=== PATIENT | female | born 1935 | race American Indian/Alaskan Native ===

== ENCOUNTER 2017-09-15 14:12 | Inpatient (IN) | payer MEDICARE ==
[2017-09-15 15:13] LABS: Eosinophils # (Auto) 0.3 K/mm3 (0.0-0.4); Eosinophils % (Auto) 5.6 % (0.0-4.3); Hemoglobin 11.3 gm/dl (10.1-14.3); Lymphocytes % (Auto) 43.5 % (13.4-35.0); Mean Corpuscular HGB Conc 32 % (30-34); Mean Corpuscular Hemoglobin 27 pg (28-32); Mean Corpuscular Volume 86 fl (79-97); Monocytes # (Auto) 0.5 K/mm3 (0.0-0.8); Monocytes % (Auto) 9.8 % (0.0-7.3); Platelet Count 184 K/mm3 (140-440); Red Cell Distribution Width 15.7 % (13.2-15.2)
[2017-09-15 15:24] LABS: BUN/Creatinine Ratio 20; Blood Urea Nitrogen 38 mg/dL (7-17); Calcium 9.7 mg/dL (8.4-10.2); Hemolysis Index 4
[2017-09-15 15:27] LABS: INR 1.01 (0.87-1.13)
[2017-09-15 15:28] LABS: Partial Thromboplastin Time 20.1 Sec. (24.2-36.6)
--- NOTE | 2017-09-15 17:56 | Cat Scan Report ---
FINAL REPORT EXAM: CT HEAD/BRAIN WO CON HISTORY: neuro deficits < 6hrs or sx present upon awakening TECHNIQUE: CT examination of the head without IV contrast PRIORS: None. FINDINGS: Nonspecific hypodense lesion is noted in the left temporo-occipital watershed region. This raises suspicion of ischemia or ischemic infarct. Differential includes edema from underlying mass. Local mass effect with effacement of the adjacent sulci. No midline shift. No acute air-fluid level visualized in the included air-filled sinuses. Bone windows demonstrate no acute fracture. There is ventricular and sulcal prominence compatible with global cerebrocortical atrophy. The brain contains no mass, mass effect, or hemorrhage. There is no extra-axial intracranial bleed, brain bleed, or midline shift. IMPRESSION: Nonspecific hypodense lesion in left temporo occipital watershed region may be ischemia or ischemic infarct. Differential includes edema from underlying mass or infection. Recommend followup brain MRI, with IV contrast if possible, to further characterize 09/15/2017 at 5:47 p.m. EST: I discussed the findings and follow-up recommendation over the phone with RUSH Estrella.
[2017-09-15] MEDS ORDERED: NACL 0.9% 1000 ML 1,000 ML IV ONE (19:31)
--- NOTE | 2017-09-15 19:31 | Emergency Department Report ---
ED Neuro Deficit HPI - General Chief Complaint: Neuro Symptoms/Deficit Stated Complaint: POSSIBLE STROKE Time Seen by Provider: 09/15/17 18:17 Source: patient Mode of arrival: Ambulatory Limitations: No Limitations - History of Present Illness Initial Comments: 8 weeks ago, the patient had a traumatic subdural hematoma. She had routine repeat CT head imaging today for follow-up of the subdural. On the CT head scan , there was a new left-sided hypodense lesion that was not seen before. Imaging was concerning for a subacute infarction. However, mass cannot be excluded. So, the patient was sent to the ER for MRI of her brain. Patient denies any neuro deficits. According to her son, patient is acting like her normal self. - Related Data Home Medications: Home Medications Medication Instructions Recorded Confirmed Last Taken Furosemide [Lasix TAB] 40 mg PO DAILY 09/15/17 09/15/17 09/15/17 Meloxicam [Mobic] 7.5 mg PO DAILY 09/15/17 09/15/17 09/15/17 Potassium Chloride [K-Dur] 20 meq PO DAILY 09/15/17 09/15/17 09/15/17 Allergies/Adverse Reactions: Allergies Allergy/AdvReac Type Severity Reaction Status Date / Time No Known Allergies Allergy Verified 09/15/17 21:58 ED Review of Systems ROS: Stated complaint: POSSIBLE STROKE Other details as noted in HPI Comment: All other systems reviewed and negative ED Past Medical Hx - Past Medical History Previous Medical History?: Yes Hx Hypertension: Yes Hx CVA: Yes (subdural hematoma 2018) - Surgical History Past Surgical History?: No - Social History Smoking Status: Never Smoker - Medications Home Medications: Home Medications Medication Instructions Recorded Confirmed Last Taken Type Furosemide [Lasix TAB] 40 mg PO DAILY 09/15/17 09/15/17 09/15/17 History Meloxicam [Mobic] 7.5 mg PO DAILY 09/15/17 09/15/17 09/15/17 History Potassium Chloride [K-Dur] 20 meq PO DAILY 09/15/17 09/15/17 09/15/17 History ED Neuro Physical Exam - General Limitations: No Limitations General appearance: alert, in no apparent distress Suspected Stroke: No - Head Head exam: Present: atraumatic, normocephalic - Eye Eye exam: Present: normal appearance - ENT ENT exam: Present: mucous membranes moist - Neck Neck exam: Present: normal inspection - Respiratory Respiratory exam: Present: normal lung sounds bilaterally. Absent: respiratory distress - Cardiovascular Cardiovascular Exam: Present: regular rate, normal rhythm. Absent: systolic murmur, diastolic murmur, rubs, gallop - GI/Abdominal GI/Abdominal exam: Present: soft, normal bowel sounds. Absent: distended, tenderness, guarding, rebound - Extremities Exam Extremities exam: Present: normal inspection - Back Exam Back exam: Present: normal inspection - Neurological Exam Neurological exam: Present: alert, oriented X3, CN II-XII intact, normal gait (w / a walker) - NIHSS Assessment Interval: Baseline 1a. Level of Consciousness: alert 1b. LOC Questions: answers correctly 1c. LOC Commands: performs tasks correctly 2. Best Gaze: normal 3. Visual: no visual loss 4. Facial Palsy: normal symmetrical movement 5b. Motor Arm Right: no drift 5a. Motor Arm Left: no drift 6a. Motor Leg Left: no drift 6b. Motor Leg Right: no drift 7. Limb Ataxia: absent 8. Sensory: normal 9. Best Language: no aphasia 10. Dysarthria: normal 11. Extinction/Inattention: no abnormality Total Score: 0 Stroke Severity: No Stroke Symptoms - Psychiatric Psychiatric exam: Present: normal affect, normal mood - Skin Skin exam: Present: warm, dry, intact, normal color. Absent: rash ED Course Vital Signs 09/15/17 09/15/17 09/15/17 14:33 18:05 18:15 Temperature 98.2 F Pulse Rate 74 71 Respiratory 16 17 16 Rate Blood Pressure 151/53 166/65 Blood Pressure [Left] O2 Sat by Pulse 100 100 Oximetry 09/15/17 09/15/17 18:30 19:58 Temperature 98.2 F Pulse Rate 62 88 Respiratory 18 21 Rate Blood Pressure 166/65 Blood Pressure 153/70 [Left] O2 Sat by Pulse 99 Oximetry - Reevaluation(s) Reevaluation #1: MRI brain shows subacute infarct. The hospitalist has been notified. 09/15/17 22:37 - Lab Data Result diagrams: 09/15/17 14:41 09/15/17 14:41 Lab Results 09/15/17 09/15/17 09/15/17 Range/Units 14:25 14:41 14:41 WBC 4.7 (4.5-11.0) K/mm3 RBC 4.20 (3.65-5.03) M/mm3 Hgb 11.3 (10.1-14.3) gm/dl Hct 36.0 (30.3-42.9) % MCV 86 (79-97) fl MCH 27 L (28-32) pg MCHC 32 (30-34) % RDW 15.7 H (13.2-15.2) % Plt Count 184 (140-440) K/mm3 Lymph % (Auto) 43.5 H (13.4-35.0) % [place] % (Auto) 9.8 H (0.0-7.3) % Eos % (Auto) 5.6 H (0.0-4.3) % Baso % (Auto) 1.0 (0.0-1.8) % Lymph # 2.0 (1.2-5.4) K/mm3 [place] # 0.5 (0.0-0.8) K/mm3 Eos # 0.3 (0.0-0.4) K/mm3 Baso # 0.0 (0.0-0.1) K/mm3 Seg Neutrophils % 40.1 (40.0-70.0) % Seg Neutrophils # 1.9 (1.8-7.7) K/mm3 PT 13.8 (12.2-14.9) Sec. INR 1.01 (0.87-1.13) APTT 20.1 L (24.2-36.6) Sec. Thrombin Time (15.1-19.6) Sec. Sodium (137-145) mmol/L Potassium (3.6-5.0) mmol/L Chloride (98-107) mmol/L Carbon Dioxide (22-30) mmol/L Anion Gap mmol/L BUN (7-17) mg/dL Creatinine (0.7-1.2) mg/dL Estimated GFR ml/min BUN/Creatinine Ratio % Glucose (65-100) mg/dL POC Glucose 100 (70-105) Calcium (8.4-10.2) mg/dL Troponin T (0.00-0.029) ng/mL 09/15/17 09/15/17 Range/Units 14:41 14:41 WBC (4.5-11.0) K/mm3 RBC (3.65-5.03) M/mm3 Hgb (10.1-14.3) gm/dl Hct (30.3-42.9) % MCV (79-97) fl MCH (28-32) pg MCHC (30-34) % RDW (13.2-15.2) % Plt Count (140-440) K/mm3 Lymph % (Auto) (13.4-35.0) % [place] % (Auto) (0.0-7.3) % Eos % (Auto) (0.0-4.3) % Baso % (Auto) (0.0-1.8) % Lymph # (1.2-5.4) K/mm3 [place] # (0.0-0.8) K/mm3 Eos # (0.0-0.4) K/mm3 Baso # (0.0-0.1) K/mm3 Seg Neutrophils % (40.0-70.0) % Seg Neutrophils # (1.8-7.7) K/mm3 PT (12.2-14.9) Sec. INR (0.87-1.13) APTT (24.2-36.6) Sec. Thrombin Time 14.8 L (15.1-19.6) Sec. Sodium 136 L (137-145) mmol/L Potassium 5.0 (3.6-5.0) mmol/L Chloride 101.3 (98-107) mmol/L Carbon Dioxide 25 (22-30) mmol/L Anion Gap 15 mmol/L BUN 38 H (7-17) mg/dL Creatinine 1.9 H (0.7-1.2) mg/dL Estimated GFR 25 ml/min BUN/Creatinine Ratio 20 % Glucose 97 (65-100) mg/dL POC Glucose (70-105) Calcium 9.7 (8.4-10.2) mg/dL Troponin T < 0.010 (0.00-0.029) ng/mL - Radiology Data Radiology results: report reviewed - Medical Decision Making 82-year-old female with past medical history subdural hematoma, hypertension that presents to the ER with abnormal CT head findings. Vital signs are stable. Patient is well-appearing. No focal neuro deficit appreciated. Lab work shows a creatinine of 1.9 with a BUN of 38. It is concerning for prerenal azotemia. Patient was given IV fluids. No prior records of her baseline kidney function. MRI brain has been ordered. Patient will be admitted for further management. - Differential Diagnosis ICH, malignancy, CVA, electrolyte abnormality, hypoglycemia, MS Critical care attestation.: If time is entered above; I have spent that time in minutes in the direct care of this critically ill patient, excluding procedure time. ED Disposition Clinical Impression: Abnormal head CT Disposition: 09 OP ADMIT IP TO THIS HOSP Is pt being admited?: Yes Does the pt Need Aspirin: No Condition: Stable Referrals: PRIMARY CARE, [Primary Care Provider] - 3-5 Days
--- NOTE | 2017-09-15 21:28 | Magnetic Resonance Report ---
FINAL REPORT PROCEDURE: MRI brain without contrast. TECHNIQUE: Magnetic resonance imaging of the brain was performed without contrast material. HISTORY: Brain lesion on CT scan of the head. COMPARISON: CT head done earlier today. FINDINGS: The ventricles are normal in size. There are few tiny focal areas of abnormal T2 and FLAIR signal intensity within deep white matter and subcortical white matter of both cerebral hemispheres. These are not unusual for age and likely represent chronic microvascular ischemic change. There is more confluent signal abnormality within the left posterior temporal/occipital region. This is seen on T2 and FLAIR weighted sequences. It involves both cortical villarreal matter and underlying white matter. There is restricted diffusion present on the DWI sequence and the apparent diffusion coefficient map. The findings represent a subacute stroke. On the T1 weighted images there is some linear, gyral high signal intensity in this same location indicating laminar necrosis. There are no mass lesions. There is no intracranial hemorrhage. The mastoid air cells and paranasal sinuses are clear. IMPRESSION: Subacute infarct in the left posterior temporal/occipital region.
[2017-09-15] MEDS ORDERED: APRESOLINE IV PRN (21:51)
[2017-09-15] MEDS ORDERED: SODIUM CHLORIDE FLUSH SYRINGE 10 ML IV PRN (21:51)
[2017-09-15] MEDS ORDERED: DULCOLAX PR PRN (21:51)
[2017-09-15] MEDS ORDERED: ZOFRAN IV PRN (21:51)
--- NOTE | 2017-09-15 21:58 | History and Physical Report ---
History of Present Illness Date of examination: 09/16/17 History of present illness: This is a 82-year-old woman with a history of hypertension, recent subdural hematoma probably 6 weeks ago was brought to the emergency room because she had a follow-up with her neurologist or neurosurgeon, CT head was done outpatient and it showed subacute CVA. She was sent to the emergency room for evaluation. Patient does have memory problems, she is unable to give the detail history, unable to reach the son. Review of systems is unobtainable PAST MEDICAL HISTORY:hypertension, recent subdural hematoma PAST SURGICAL HISTORY: c/section, knee surgery SOCIAL HISTORY: No alcohol, no drugs, tobacco FAMILY HISTORY: Hypertension Medications and Allergies Allergies Allergy/AdvReac Type Severity Reaction Status Date / Time No Known Allergies Allergy Verified 09/15/17 21:58 Home Medications Medication Instructions Recorded Confirmed Last Taken Type Furosemide [Lasix TAB] 40 mg PO DAILY 09/15/17 09/15/17 09/15/17 History Meloxicam [Mobic] 7.5 mg PO DAILY 09/15/17 09/15/17 09/15/17 History Potassium Chloride [K-Dur] 20 meq PO DAILY 09/15/17 09/15/17 09/15/17 History Active Meds: Active Medications Acetaminophen (Tylenol) 650 mg PO Q4H PRN PRN Reason: Pain, Mild (1-3) Exam - Physical Exam Narrative exam: Gen. appearance: Patient lying in bed, no apparent distress HEENT: Normocephalic, atraumatic, pupils equally round and reactive to light, extraocular movement intact, and no sclericterus,. No JVD or thyromegaly or nodule,neck supple, no carotid bruit ,mucous membranes moist, no exudate or erythema Heart: S1, S2, regular rate and rhythm Lungs: Clear bilaterally, breathing comfortable Abdomen: Positive bowel sounds, non-tender, nondistended, no organomegaly Extremity:no edema cyanosis, clubbing Skin: no rash, dry, warm Neuro: cranial nerves difficult to assess intact, speech is fluent, motor intact - Constitutional Vitals: Temp Pulse Resp BP Pulse Ox 98.2 F 88 21 153/70 99 09/15/17 19:58 09/15/17 19:58 09/15/17 19:58 09/15/17 19:58 09/15/17 19:58 Results - Labs CBC & Chem 7: 09/15/17 22:07 09/15/17 22:07 Labs: Abnormal lab results 09/15/17 09/15/17 09/15/17 Range/Units 14:41 14:41 14:41 MCH 27 L (28-32) pg RDW 15.7 H (13.2-15.2) % Lymph % (Auto) 43.5 H (13.4-35.0) % [place] % (Auto) 9.8 H (0.0-7.3) % Eos % (Auto) 5.6 H (0.0-4.3) % APTT 20.1 L (24.2-36.6) Sec. Thrombin Time (15.1-19.6) Sec. Sodium 136 L (137-145) mmol/L BUN 38 H (7-17) mg/dL Creatinine 1.9 H (0.7-1.2) mg/dL 09/15/17 Range/Units 14:41 MCH (28-32) pg RDW (13.2-15.2) % Lymph % (Auto) (13.4-35.0) % [place] % (Auto) (0.0-7.3) % Eos % (Auto) (0.0-4.3) % APTT (24.2-36.6) Sec. Thrombin Time 14.8 L (15.1-19.6) Sec. Sodium (137-145) mmol/L BUN (7-17) mg/dL Creatinine (0.7-1.2) mg/dL - Imaging and Cardiology Chest x-ray: report reviewed CT Scan - head: report reviewed MRI - head: report reviewed Assessment and Plan Assessment Subacute CVA Hypertension Recent subdural hematoma Plan Admit medicine Obtain carotid Doppler, echo Consult neurology, occupational physical and therapy Do neurochecks, swallow screen DVT prophylaxis
[2017-09-15 22:47] LABS: Basophils % (Auto) 0.8 % (0.0-1.8); Eosinophils # (Auto) 0.3 K/mm3 (0.0-0.4); Eosinophils % (Auto) 5.4 % (0.0-4.3); Hematocrit 34.6 % (30.3-42.9); Hemoglobin 11.2 gm/dl (10.1-14.3); Lymphocytes # (Auto) 2.3 K/mm3 (1.2-5.4); Lymphocytes % (Auto) 45.6 % (13.4-35.0); Mean Corpuscular HGB Conc 32 % (30-34); Mean Corpuscular Hemoglobin 28 pg (28-32); Mean Corpuscular Volume 85 fl (79-97); Monocytes # (Auto) 0.5 K/mm3 (0.0-0.8); Monocytes % (Auto) 10.4 % (0.0-7.3); Platelet Count 175 K/mm3 (140-440); Red Blood Count 4.08 M/mm3 (3.65-5.03); Red Cell Distribution Width 15.4 % (13.2-15.2)
[2017-09-15 22:56] LABS: Calcium 9.7 mg/dL (8.4-10.2)
[2017-09-16 08:19] LABS: Chol/HDL Ratio 3.53 %
--- NOTE | 2017-09-16 12:46 | Progress Note ---
Assessment and Plan Assessment and plan: --Subacute left temporal CVA; Not a candidate for TPA Follow neuro workup, No aspirin in view of history of subdural hematoma, statin Follow neurology evaluation and recommendations Physical therapy occupational therapy rehabilitation --Acute kidney injury; secondary to vasomotor nephropathy Closely monitor renal function, avoid nephrotoxin, IV fluids as needed Nephrology consultation if no improvement --Hypertension; moderate control Continue current antihypertensives and when necessary medications --Recent subdural hematoma; supportive care, No aspirin no anticoagulants, no neurology recommendations --Full CODE STATUS --DVT prophylaxis; SCD Physical therapy occupational therapy, rehabilitation Closely monitor the patient and adjust the management as needed Plan of care is reviewed with the patient and the nurse History Interval history: Patient seen and examined medical records reviewed Admitted with subacute CVA, neuro workup is in progress Patient is alert responding appropriately Vital signs reviewed Hospitalist Physical - Constitutional Vitals: Temp Pulse Resp BP Pulse Ox 98.3 F 77 22 147/59 97 09/16/17 04:55 09/16/17 04:55 09/16/17 04:47 09/16/17 04:55 09/16/17 04:55 General appearance: Present: no acute distress, well-nourished, obese - EENT Eyes: Present: PERRL, EOM intact - Neck Neck: Present: supple, normal ROM - Respiratory Respiratory effort: normal Respiratory: bilateral: diminished, negative: rales, rhonchi - Cardiovascular Rhythm: regular Heart Sounds: Present: S1 & S2 - Extremities Extremities: no ischemia, No edema - Abdominal General gastrointestinal: soft, non-tender, non-distended, normal bowel sounds - Integumentary Integumentary: Present: clear, warm - Psychiatric Psychiatric: appropriate mood/affect, cooperative - Neurologic Neurologic: moves all extremities Results - Labs CBC & Chem 7: 09/15/17 22:07 09/15/17 22:07 Labs: Laboratory Last Values WBC 5.0 K/mm3 (4.5-11.0) 09/15/17 22:07 RBC 4.08 M/mm3 (3.65-5.03) 09/15/17 22:07 Hgb 11.2 gm/dl (10.1-14.3) 09/15/17 22:07 Hct 34.6 % (30.3-42.9) 09/15/17 22:07 MCV 85 fl (79-97) 09/15/17 22:07 MCH 28 pg (28-32) 09/15/17 22:07 MCHC 32 % (30-34) 09/15/17 22:07 RDW 15.4 % (13.2-15.2) H 09/15/17 22:07 Plt Count 175 K/mm3 (140-440) 09/15/17 22:07 Lymph % (Auto) 45.6 % (13.4-35.0) H 09/15/17 22:07 [place] % (Auto) 10.4 % (0.0-7.3) H 09/15/17 22:07 Eos % (Auto) 5.4 % (0.0-4.3) H 09/15/17 22:07 Baso % (Auto) 0.8 % (0.0-1.8) 09/15/17 22:07 Lymph # 2.3 K/mm3 (1.2-5.4) 09/15/17 22:07 [place] # 0.5 K/mm3 (0.0-0.8) 09/15/17 22:07 Eos # 0.3 K/mm3 (0.0-0.4) 09/15/17 22:07 Baso # 0.0 K/mm3 (0.0-0.1) 09/15/17 22:07 Seg Neutrophils % 37.8 % (40.0-70.0) L 09/15/17 22:07 Seg Neutrophils # 1.9 K/mm3 (1.8-7.7) 09/15/17 22:07 PT 13.8 Sec. (12.2-14.9) 09/15/17 14:41 INR 1.01 (0.87-1.13) 09/15/17 14:41 APTT 20.1 Sec. (24.2-36.6) L 09/15/17 14:41 Thrombin Time 14.8 Sec. (15.1-19.6) L 09/15/17 14:41 Sodium 139 mmol/L (137-145) 09/15/17 22:07 Potassium 4.7 mmol/L (3.6-5.0) 09/15/17 22:07 Chloride 102.4 mmol/L (98-107) 09/15/17 22:07 Carbon Dioxide 26 mmol/L (22-30) 09/15/17 22:07 Anion Gap 15 mmol/L 09/15/17 22:07 BUN 41 mg/dL (7-17) H 09/15/17 22:07 Creatinine 1.9 mg/dL (0.7-1.2) H 09/15/17 22:07 Estimated GFR 31 ml/min 09/15/17 22:07 BUN/Creatinine Ratio 22 % 09/15/17 22:07 Glucose 108 mg/dL (65-100) H 09/15/17 22:07 POC Glucose 100 (70-105) 09/15/17 14:25 Calcium 9.7 mg/dL (8.4-10.2) 09/15/17 22:07 Troponin T < 0.010 ng/mL (0.00-0.029) 09/15/17 14:41 Triglycerides 64 mg/dL (2-149) 09/16/17 07:17 Cholesterol 212 mg/dL (50-199) H 09/16/17 07:17 LDL Cholesterol Direct 165 mg/dL (50-130) H 09/16/17 07:17 HDL Cholesterol 60 mg/dL (40-59) H 09/16/17 07:17 Cholesterol/HDL Ratio 3.53 % 09/16/17 07:17
[2017-09-16] MEDS ORDERED: XANAX PO SCH (14:55)
--- NOTE | 2017-09-16 16:12 | Magnetic Resonance Report ---
FINAL REPORT EXAM: MR MRA HEAD WO CON HISTORY: stroke TECHNIQUE: Multiplanar multisequence brain arterial vascular MRA imaging 3-D image postprocessing. PRIORS: Brain MRI and head CT 09/15/2017 FINDINGS: Internal carotid arteries: Normal. Anterior cerebral arteries: Normal. Middle cerebral arteries: Normal. Vertebral arteries: Normal. Basilar artery: Normal. Posterior cerebral arteries: Normal. Developmental variation with hybrid persistent circulation of the right HEAD MACHINE FEEDER origin Occlusion: None. Vascular malformations: None. Aneurysm: None. Cortical ribbon hyperintensity in the left temporal occipital watershed region may reflect luxury perfusion in the region of suspected ischemic infarct. IMPRESSION: No definite brain vascular pathology Nonspecific cortical ribbon hyperintensity in the left temporal occipital watershed region may reflect luxury perfusion in the region of suspected ischemic infarct
[2017-09-16] MEDS: BABY ASPIRIN PO SCH (16:46)
--- NOTE | 2017-09-16 19:51 | Consultation ---
History of Present Illness Consult date: 09/16/17 Requesting physician: NAILA WAGGONER Reason for Consult: stroke Chief complaint: stroke History of present illness: This 82 year old right handed female has a history of traumatic subdural hematoma in June around according to her son for which she was admitted to [facility] but no surgery was done. She was getting yesterday a follow-up CT scan which showed a left posterior hypodensity for which she was sent to the emergency room around 9 or 10 PM. She had been confused in part due to UTI around the time of traumatic subdural from which she improved though was still not back to her baseline. She complains of some pain in the right mastoid area ever since the subdural. MRI showed left posterior embolic appearing stroke but no residuals of subdural hematoma. LDL 165, HDL 60, triglycerides 64. Past History Past Medical History: CAD (placed on hospice end of July after rehabilitation from subdural hematoma), hypertension, other (right subdural hematoma at the end of June this year from a fall). denies: diabetes, stroke Past Surgical History: , hysterectomy (total), total knee replacement ( bilaterally) Social history: (2 children, 4 grandchildren), lives with family (lives with her son). denies: smoking, alcohol abuse, prescription drug abuse, IV drug use Family history: diabetes, hypertension (mother and son), stroke (other), other ( negative for epilepsy) Medications and Allergies Allergies Allergy/AdvReac Type Severity Reaction Status Date / Time No Known Allergies Allergy Verified 09/15/17 21:58 Home Medications Medication Instructions Recorded Confirmed Last Taken Type Furosemide [Lasix TAB] 40 mg PO DAILY 09/15/17 09/15/17 09/15/17 History Meloxicam [Mobic] 7.5 mg PO DAILY 09/15/17 09/15/17 09/15/17 History Potassium Chloride [K-Dur] 20 meq PO DAILY 09/15/17 09/15/17 09/15/17 History Active Meds: Active Medications Acetaminophen (Tylenol) 650 mg PO Q4H PRN PRN Reason: Pain, Mild (1-3) Alprazolam (Xanax) 1 mg PO BOTTLE [facility] Stop: 09/17/17 06:00 Aspirin (Baby Aspirin) 81 mg PO QDAY [facility] Last Admin: 09/16/17 16:46 Dose: 81 mg Atorvastatin Calcium (Lipitor) 40 mg PO QHS [facility] Last Admin: 09/15/17 23:13 Dose: 40 mg Bisacodyl (Dulcolax) 10 mg WI QDAY PRN PRN Reason: Constipation Hydralazine HCl (Apresoline) 5 mg IV Q6H PRN PRN Reason: Keep SBP between 160-185 mm Hg Magnesium Hydroxide (Milk Of Magnesia) 30 ml PO Q4H PRN PRN Reason: Constipation Ondansetron HCl (Zofran) 4 mg IV Q4H PRN PRN Reason: Nausea And Vomiting Sodium Chloride (Sodium Chloride Flush Syringe 10 Ml) 10 ml IV PRN PRN PRN Reason: LINE FLUSH Review of Systems All systems: negative (sinus headaches until the more recent headache from the subdural, no dizziness, no snoring, no pauses noted, for 30-60 minutes and may doze off other times, not driving. Remote and short-term memory problems since the subdural hematoma) Physical Examination - Vital Signs Vital Signs: Vital Signs Temp Pulse Resp BP Pulse Ox 98.2 F 74 16 151/53 100 09/15/17 14:33 09/15/17 14:33 09/15/17 14:33 09/15/17 14:33 09/15/17 14:33 - Physical Exam Narrative exam: General Appearance: well developed but obese (per BMI) early 80s - [place] female in [facility] but confused, later accompanied by her son. HEENT: atraumatic, normocephalic; no bruits, 2+ Josey without soreness or induration or enlargement, sclerae nonicteric. Heart: no murmur or extra sounds. Extremities: no clubbing or cyanosis but 2+ edema. 2+ posterior tibial pulses bilaterally. Neurologic Exam: Mental Status: Awake, alert, oriented to September 8 but later changes back to August and gives year as 2020. She knows is that she is at [facility], gives the president after first name prompt but not PRESERVATIONIST, speech is clear, names pen and ballpoint of pen, and abstracts well. Serial 7's with at least one error but gives 5+7=12 then says 102, no right-left confusion, gets 1 of 3 objects at 3 minutes, cannot spell WORLD backwards. Cranial Nerves: right field cut, no papilledema, SVPs present, PERRLA, EOMs full without nystagmus or diplopia, facial sensation intact to pinprick and light touch, no facial weakness, Fajardo is midline, palate rises symmetrically to phonation and gags are positive, shoulder shrug is 5 X 2, tongue protrudes midline. Cerebellar: finger to nose slightly dysmetric X 2, heel to yoo is normal X 2. Sensory: intact to light touch, pinprick, and vibrations. Double simultaneous stimulation is intact. Motor Exam Upper Extremities: Mild right drift and pronation, Brandy intact. Education Site Manager are 5- X 2, tone is normal. No atrophy or fasciculations are noted visually. Motor Exam Lower Extremities: no leg lag, quadriceps and anterior tibials and gastrocnemius are 5 X 2. Brandy intact. Tone is normal. No atrophy or fasciculations are noted visually. Reflexes: Palmomental, snout and jaw jerk are negative. Triceps, biceps and brachioradialis are 2 bilaterally. Jerry's is negative bilaterally. Knee jerks and ankle jerks are 0 bilaterally even with reinforcement and without clonus. Toes are downgoing right and equivocal left to Babinski testing. - Assessment Assessment Interval: Baseline - Level of Consciousness 1a. Level of Consciousness: alert - LOC Questions 1b. LOC Questions: answers correctly - LOC Command 1c. LOC Commands: performs tasks correctly - Best Gaze 2. Best Gaze: normal - Visual 3. Visual: no visual loss - Facial Palsy 4. Facial Palsy: normal symmetrical movement - Motor Arm 5b. Motor Arm Right: no drift - Motor Leg 6a. Motor Leg Left: no drift - Limb Ataxia 7. Limb Ataxia: absent - Sensory 8. Sensory: normal - Best Language 9. Best Language: no aphasia - Dysarthria 10. Dysarthria: normal - Extinction and Inattention 11. Extinction/Inattention: no abnormality Results - Laboratory Findings CBC and BMP: 09/17/17 07:05 09/17/17 07:05 Abnormal Lab Findings: Abnormal Labs 09/15/17 09/15/17 09/15/17 14:41 14:41 14:41 MCH 27 L RDW 15.7 H Lymph % (Auto) 43.5 H [place] % (Auto) 9.8 H Eos % (Auto) 5.6 H Seg Neutrophils % APTT 20.1 L Thrombin Time Sodium 136 L BUN 38 H Creatinine 1.9 H Glucose POC Glucose Cholesterol LDL Cholesterol Direct HDL Cholesterol 09/15/17 09/15/17 09/15/17 14:41 22:07 22:07 MCH RDW 15.4 H Lymph % (Auto) 45.6 H [place] % (Auto) 10.4 H Eos % (Auto) 5.4 H Seg Neutrophils % 37.8 L APTT Thrombin Time 14.8 L Sodium BUN 41 H Creatinine 1.9 H Glucose 108 H POC Glucose Cholesterol LDL Cholesterol Direct HDL Cholesterol 09/16/17 09/16/17 07:17 16:21 MCH RDW Lymph % (Auto) [place] % (Auto) Eos % (Auto) Seg Neutrophils % APTT Thrombin Time Sodium BUN Creatinine Glucose POC Glucose 107 H Cholesterol 212 H LDL Cholesterol Direct 165 H HDL Cholesterol 60 H Assessment and Plan Impression: 1. Embolic stroke and lacunar strokes 2. Hx of SDH 3. Hyperlipidemia 4. Hypertension 5. Memory loss Plan: 1. Echocardiogram with bubbles pending. 2. MRAs head and neck noncontrast, due to renal function. 3. Memory labs. 4. I added 81 mg aspirin. 5. Ordered urine microscopic and culture to rule out UTI since this contributed per son to worsening mental status in June. 50 minutes spent including discussion with son and review of MRI images with patient and her son showing the new stroke. Thank you for an interesting consultation on this pleasant early 80s lady. Signing off, call for any further questions.
[2017-09-16] MEDS: TYLENOL PO PRN (21:10)
[2017-09-16] MEDS: MILK OF MAGNESIA PO PRN (21:17)
[2017-09-17 08:05] LABS: Hematocrit 32.1 % (30.3-42.9); Hemoglobin 10.5 gm/dl (10.1-14.3); Mean Corpuscular HGB Conc 33 % (30-34); Mean Corpuscular Hemoglobin 28 pg (28-32); Mean Corpuscular Volume 85 fl (79-97); Platelet Count 163 K/mm3 (140-440); Red Cell Distribution Width 15.6 % (13.2-15.2)
[2017-09-17 09:52] LABS: Basophils % (Manual) 0 % (0.0-1.8); Total Cells Counted 100
[2017-09-17 09:55] LABS: Anisocytosis 1+; Ovalocytes Few; Platelet Estimate Consistent w Auto
[2017-09-17] MEDS: BABY ASPIRIN PO SCH (10:14)
--- NOTE | 2017-09-17 13:41 | Progress Note ---
Assessment and Plan Assessment and plan: --Subacute left temporal CVA; Not a candidate for TPA, neuro workup ; CT head without contrast; nonspecific hypodense lesion left temporo-occipital , ischemic infarct MRA brain; normal study MRI brain; subacute infarct in the left posterotemporal occipital region MRA neck; normal study Echocardiogram; normal ejection fraction Carotid Doppler; less than 50% stenosis of bilateral Low-dose aspirin and statin recommended by neurology --History of subdural hematoma, CT no evidence of subdural hematoma neurology advised low-dose aspirin Physical therapy occupational therapy rehabilitation --Acute kidney injury; secondary to vasomotor nephropathy Closely monitor renal function, avoid nephrotoxin, IV fluids as needed Nephrology consultation if no improvement --Hypertension; moderate control Continue current antihypertensives and when necessary medications --Recent subdural hematoma; supportive care, no evidence of SDH on CT head Low-dose aspirin recommended by neurology --Right hip pain/status post fall; no restriction range of movements Probably osteoarthritis, and check hip x-ray, constipation orthopedic evaluation if abnormal --Full CODE STATUS --DVT prophylaxis; SCD Physical therapy occupational therapy, rehabilitation Closely monitor the patient and adjust the management as needed Plan of care is reviewed with the patient and the nurse History Interval history: Patient seen and examined medical records reviewed No new events reported by the nursing Patient complains of left hip pain Tolerated physical therapy Multiple family members at the bedside Alert awake oriented 3 Vital signs reviewed Hospitalist Physical - Constitutional Vitals: Temp Pulse Resp BP Pulse Ox 97.7 F 59 L 18 168/61 98 09/17/17 12:27 09/17/17 12:27 09/17/17 12:27 09/17/17 12:27 09/17/17 12:27 General appearance: Present: no acute distress, well-nourished, obese - EENT Eyes: Present: PERRL, EOM intact - Neck Neck: Present: supple, normal ROM - Respiratory Respiratory effort: normal Respiratory: bilateral: diminished, negative: rales, rhonchi, wheezing - Cardiovascular Rhythm: regular Heart Sounds: Present: S1 & S2 - Extremities Extremities: no ischemia, No edema Peripheral Pulses: within normal limits - Abdominal General gastrointestinal: soft, non-tender, non-distended, normal bowel sounds - Integumentary Integumentary: Present: clear, warm - Psychiatric Psychiatric: appropriate mood/affect, cooperative - Neurologic Neurologic: CNII-XII intact, moves all extremities Results - Labs CBC & Chem 7: 09/17/17 07:05 09/17/17 07:05 Labs: Laboratory Last Values WBC 4.3 K/mm3 (4.5-11.0) L 09/17/17 07:05 RBC 3.80 M/mm3 (3.65-5.03) 09/17/17 07:05 Hgb 10.5 gm/dl (10.1-14.3) 09/17/17 07:05 Hct 32.1 % (30.3-42.9) 09/17/17 07:05 MCV 85 fl (79-97) 09/17/17 07:05 MCH 28 pg (28-32) 09/17/17 07:05 MCHC 33 % (30-34) 09/17/17 07:05 RDW 15.6 % (13.2-15.2) H 09/17/17 07:05 Plt Count 163 K/mm3 (140-440) 09/17/17 07:05 Lymph % (Auto) 45.6 % (13.4-35.0) H 09/15/17 22:07 [place] % (Auto) 10.4 % (0.0-7.3) H 09/15/17 22:07 Eos % (Auto) 5.4 % (0.0-4.3) H 09/15/17 22:07 Baso % (Auto) 0.8 % (0.0-1.8) 09/15/17 22:07 Lymph # 2.3 K/mm3 (1.2-5.4) 09/15/17 22:07 Bryan # 0.5 K/mm3 (0.0-0.8) 09/15/17 22:07 Eos # 0.3 K/mm3 (0.0-0.4) 09/15/17 22:07 Baso # 0.0 K/mm3 (0.0-0.1) 09/15/17 22:07 Add Manual Diff Complete 09/17/17 07:05 Total Counted 100 09/17/17 07:05 Seg Neutrophils % Aoc Director Combat Plans Officer 09/17/17 07:05 Seg Neuts % (Manual) 40.0 % (40.0-70.0) 09/17/17 07:05 Band Neutrophils % 1.0 % 09/17/17 07:05 Lymphocytes % (Manual) 39.0 % (13.4-35.0) H 09/17/17 07:05 Reactive Lymphs % (Man) 3.0 % 09/17/17 07:05 Monocytes % (Manual) 12.0 % (0.0-7.3) H 09/17/17 07:05 Eosinophils % (Manual) 5.0 % (0.0-4.3) H 09/17/17 07:05 Basophils % (Manual) 0 % (0.0-1.8) 09/17/17 07:05 Metamyelocytes % 0 % 09/17/17 07:05 Myelocytes % 0 % 09/17/17 07:05 Promyelocytes % 0 % 09/17/17 07:05 Blast Cells % 0 % 09/17/17 07:05 Nucleated RBC % Not Reportable 09/17/17 07:05 Seg Neutrophils # 1.9 K/mm3 (1.8-7.7) 09/15/17 22:07 Seg Neutrophils # Man 1.7 K/mm3 (1.8-7.7) L 09/17/17 07:05 Band Neutrophils # 0.0 K/mm3 09/17/17 07:05 Lymphocytes # (Manual) 1.7 K/mm3 (1.2-5.4) 09/17/17 07:05 Abs React Lymphs (Man) 0.1 K/mm3 09/17/17 07:05 Monocytes # (Manual) 0.5 K/mm3 (0.0-0.8) 09/17/17 07:05 Eosinophils # (Manual) 0.2 K/mm3 (0.0-0.4) 09/17/17 07:05 Basophils # (Manual) 0.0 K/mm3 (0.0-0.1) 09/17/17 07:05 Metamyelocytes # 0.0 K/mm3 09/17/17 07:05 Myelocytes # 0.0 K/mm3 09/17/17 07:05 Promyelocytes # 0.0 K/mm3 09/17/17 07:05 Blast Cells # 0.0 K/mm3 09/17/17 07:05 WBC Morphology Not Reportable 09/17/17 07:05 Hypersegmented Neuts Not Reportable 09/17/17 07:05 Hyposegmented Neuts Not Reportable 09/17/17 07:05 Hypogranular Neuts Not Reportable 09/17/17 07:05 Smudge Cells Not Reportable 09/17/17 07:05 Toxic Granulation Not Reportable 09/17/17 07:05 Toxic Vacuolation Not Reportable 09/17/17 07:05 Dohle Bodies Not Reportable 09/17/17 07:05 Pelger-Huet Anomaly Not Reportable 09/17/17 07:05 Yoan Rods Not Reportable 09/17/17 07:05 Platelet Estimate Consistent w auto 09/17/17 07:05 Clumped Platelets Not Reportable 09/17/17 07:05 Plt Clumps, EDTA Not Reportable 09/17/17 07:05 Large Platelets Not Reportable 09/17/17 07:05 Giant Platelets Not Reportable 09/17/17 07:05 Platelet Satelliting Not Reportable 09/17/17 07:05 Plt Morphology Comment Not Reportable 09/17/17 07:05 RBC Morphology Not Reportable 09/17/17 07:05 Dimorphic RBCs Not Reportable 09/17/17 07:05 Polychromasia Not Reportable 09/17/17 07:05 Hypochromasia Not Reportable 09/17/17 07:05 Poikilocytosis Not Reportable 09/17/17 07:05 Anisocytosis 1+ 09/17/17 07:05 Microcytosis 1+ 09/17/17 07:05 Macrocytosis Not Reportable 09/17/17 07:05 Spherocytes Not Reportable 09/17/17 07:05 Pappenheimer Bodies Not Reportable 09/17/17 07:05 Sickle Cells Not Reportable 09/17/17 07:05 Target Cells Not Reportable 09/17/17 07:05 Tear Drop Cells Not Reportable 09/17/17 07:05 Ovalocytes Few 09/17/17 07:05 Helmet Cells Not Reportable 09/17/17 07:05 [place] Bodies Not Reportable 09/17/17 07:05 [place] Rings Not Reportable 09/17/17 07:05 Sriram Cells Not Reportable 09/17/17 07:05 Bite Cells Not Reportable 09/17/17 07:05 Crenated Cell Not Reportable 09/17/17 07:05 Elliptocytes Not Reportable 09/17/17 07:05 Acanthocytes (Spur) Not Reportable 09/17/17 07:05 Rouleaux Not Reportable 09/17/17 07:05 Hemoglobin C Crystals Not Reportable 09/17/17 07:05 Schistocytes Not Reportable 09/17/17 07:05 Malaria parasites Not Reportable 09/17/17 07:05 Randal Bodies Not Reportable 09/17/17 07:05 Hem Pathologist Commnt No 09/17/17 07:05 PT 13.8 Sec. (12.2-14.9) 09/15/17 14:41 INR 1.01 (0.87-1.13) 09/15/17 14:41 APTT 20.1 Sec. (24.2-36.6) L 09/15/17 14:41 Thrombin Time 14.8 Sec. (15.1-19.6) L 09/15/17 14:41 Sodium 143 mmol/L (137-145) 09/17/17 07:05 Potassium 5.0 mmol/L (3.6-5.0) 09/17/17 07:05 Chloride 108.2 mmol/L (98-107) H 09/17/17 07:05 Carbon Dioxide 23 mmol/L (22-30) 09/17/17 07:05 Anion Gap 17 mmol/L 09/17/17 07:05 BUN 32 mg/dL (7-17) H 09/17/17 07:05 Creatinine 1.6 mg/dL (0.7-1.2) H 09/17/17 07:05 Estimated GFR 37 ml/min 09/17/17 07:05 BUN/Creatinine Ratio 20 % 09/17/17 07:05 Glucose 85 mg/dL (65-100) 09/17/17 07:05 POC Glucose 107 (70-105) H 09/16/17 16:21 Calcium 9.0 mg/dL (8.4-10.2) 09/17/17 07:05 Troponin T < 0.010 ng/mL (0.00-0.029) 09/15/17 14:41 Triglycerides 64 mg/dL (2-149) 09/16/17 07:17 Cholesterol 212 mg/dL (50-199) H 09/16/17 07:17 LDL Cholesterol Direct 165 mg/dL (50-130) H 09/16/17 07:17 HDL Cholesterol 60 mg/dL (40-59) H 09/16/17 07:17 Cholesterol/HDL Ratio 3.53 % 09/16/17 07:17 Vitamin B12 791.4 pg/mL (211-911) 09/16/17 20:10 Folate 8.65 ng/mL (7.3-26.0) 09/16/17 20:09 TSH 0.604 mlU/mL (0.270-4.200) 09/16/17 20:11 Free T4 1.14 ng/dL (0.76-1.46) 09/16/17 20:01
--- NOTE | 2017-09-17 16:17 | Magnetic Resonance Report ---
FINAL REPORT EXAM: MR MRA NECK WO CON HISTORY: stroke TECHNIQUE: Multiplanar multisequence carotids/neck arterial vascular MRA imaging 3-D image postprocessing. PRIORS: MRA brain 09/15/2017 FINDINGS: Patient motion artifact degrades image quality and limits the examination. The visualized vertebral, basilar, and carotid arteries are patent diffusely. The carotid bifurcation appears diffusely patent bilaterally. Vessel caliber is normal without stenosis, ulceration, occlusion, or aneurysm. There is no definite filling defect to suggest dissection. Less than 50 % diameter stenosis is noted. IMPRESSION: No definite MRA evidence of stenosis or aneurysm
--- NOTE | 2017-09-17 20:41 | XRay Report ---
FINAL REPORT PROCEDURE: Right hip. TECHNIQUE: AP pelvis, frogleg lateral view of the right hip. HISTORY: Right hip pain, history of fall. COMPARISON: No prior studies are available for comparison. FINDINGS: The bones appear intact without fracture or dislocation. There is moderately severe narrowing of the right hip joint. There is an ovoid mass of mixed density in the intratrochanteric region of the right femur. This likely represents a benign lesion such as an enchondroma. Follow-up imaging could be done to help document stability. The soft tissues are unremarkable. IMPRESSION: Moderate osteoarthritis involving the right hip. Probable benign bone lesion in the right femur.
[2017-09-17] MEDS: TYLENOL PO PRN (23:35)
[2017-09-18] MEDS: BABY ASPIRIN PO SCH (09:54)
--- NOTE | 2017-09-18 13:13 | Progress Note ---
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 Continue occupational therapy. Most likely will need half-way facility placement. (2) Hypertension Current Visit: Yes Status: Acute Plan to address problem: Ratio has fair control of blood pressure with oral anti-hypertensives. (3) Hyperlipidemia Current Visit: Yes Status: Acute Plan to address problem: Continue statin LDL was 200. (4) Hip pain Current Visit: Yes Status: Acute Plan to address problem: She hasn't had left hip pain. X-ray consistent with objective findings of arthritis. History Interval history: Patient seen and examined today resting comfortably no new events over p.m. Since alert and oriented 3. Left hip pain has improved. No events over night. MRA was negative. Hip x-ray show left hip pruritus. Hospitalist Physical - Constitutional Vitals: Temp Pulse Resp BP Pulse Ox 98.0 F 66 20 153/61 99 09/18/17 11:18 09/18/17 11:18 09/18/17 11:18 09/18/17 11:18 09/18/17 11:18 General appearance: Present: no acute distress, well-nourished, obese - EENT Eyes: Present: PERRL, EOM intact ENT: hearing intact, clear oral mucosa, hearing decreased, poor dentition - Neck Neck: Present: normal ROM - Respiratory Respiratory: bilateral: CTA - Cardiovascular Rhythm: regular Heart Sounds: Present: S1 & S2 - Extremities Extremities: no ischemia, pulses intact, pulses symmetrical, No edema Peripheral Pulses: within normal limits - Abdominal General gastrointestinal: soft, non-tender, non-distended, hypoactive bowel sounds - Psychiatric Psychiatric: appropriate mood/affect, intact judgment & insight, other - Neurologic Neurologic: CNII-XII intact, focal deficits, moves all extremities (flat mood.) Results - Labs CBC & Chem 7: 09/17/17 07:05 09/17/17 07:05 Labs: Laboratory Last Values WBC 4.3 K/mm3 (4.5-11.0) L 09/17/17 07:05 RBC 3.80 M/mm3 (3.65-5.03) 09/17/17 07:05 Hgb 10.5 gm/dl (10.1-14.3) 09/17/17 07:05 Hct 32.1 % (30.3-42.9) 09/17/17 07:05 MCV 85 fl (79-97) 09/17/17 07:05 MCH 28 pg (28-32) 09/17/17 07:05 MCHC 33 % (30-34) 09/17/17 07:05 RDW 15.6 % (13.2-15.2) H 09/17/17 07:05 Plt Count 163 K/mm3 (140-440) 09/17/17 07:05 Lymph % (Auto) 45.6 % (13.4-35.0) H 09/15/17 22:07 [place] % (Auto) 10.4 % (0.0-7.3) H 09/15/17 22:07 Eos % (Auto) 5.4 % (0.0-4.3) H 09/15/17 22:07 Baso % (Auto) 0.8 % (0.0-1.8) 09/15/17 22:07 Lymph # 2.3 K/mm3 (1.2-5.4) 09/15/17 22:07 [place] # 0.5 K/mm3 (0.0-0.8) 09/15/17 22:07 Eos # 0.3 K/mm3 (0.0-0.4) 09/15/17 22:07 Baso # 0.0 K/mm3 (0.0-0.1) 09/15/17 22:07 Add Manual Diff Complete 09/17/17 07:05 Total Counted 100 09/17/17 07:05 Seg Neutrophils % It Trainer 09/17/17 07:05 Seg Neuts % (Manual) 40.0 % (40.0-70.0) 09/17/17 07:05 Band Neutrophils % 1.0 % 09/17/17 07:05 Lymphocytes % (Manual) 39.0 % (13.4-35.0) H 09/17/17 07:05 Reactive Lymphs % (Man) 3.0 % 09/17/17 07:05 Monocytes % (Manual) 12.0 % (0.0-7.3) H 09/17/17 07:05 Eosinophils % (Manual) 5.0 % (0.0-4.3) H 09/17/17 07:05 Basophils % (Manual) 0 % (0.0-1.8) 09/17/17 07:05 Metamyelocytes % 0 % 09/17/17 07:05 Myelocytes % 0 % 09/17/17 07:05 Promyelocytes % 0 % 09/17/17 07:05 Blast Cells % 0 % 09/17/17 07:05 Nucleated RBC % Not Reportable 09/17/17 07:05 Seg Neutrophils # 1.9 K/mm3 (1.8-7.7) 09/15/17 22:07 Seg Neutrophils # Man 1.7 K/mm3 (1.8-7.7) L 09/17/17 07:05 Band Neutrophils # 0.0 K/mm3 09/17/17 07:05 Lymphocytes # (Manual) 1.7 K/mm3 (1.2-5.4) 09/17/17 07:05 Abs React Lymphs (Man) 0.1 K/mm3 09/17/17 07:05 Monocytes # (Manual) 0.5 K/mm3 (0.0-0.8) 09/17/17 07:05 Eosinophils # (Manual) 0.2 K/mm3 (0.0-0.4) 09/17/17 07:05 Basophils # (Manual) 0.0 K/mm3 (0.0-0.1) 09/17/17 07:05 Metamyelocytes # 0.0 K/mm3 09/17/17 07:05 Myelocytes # 0.0 K/mm3 09/17/17 07:05 Promyelocytes # 0.0 K/mm3 09/17/17 07:05 Blast Cells # 0.0 K/mm3 09/17/17 07:05 WBC Morphology Not Reportable 09/17/17 07:05 Hypersegmented Neuts Not Reportable 09/17/17 07:05 Hyposegmented Neuts Not Reportable 09/17/17 07:05 Hypogranular Neuts Not Reportable 09/17/17 07:05 Smudge Cells Not Reportable 09/17/17 07:05 Toxic Granulation Not Reportable 09/17/17 07:05 Toxic Vacuolation Not Reportable 09/17/17 07:05 Dohle Bodies Not Reportable 09/17/17 07:05 Pelger-Huet Anomaly Not Reportable 09/17/17 07:05 Yoan Rods Not Reportable 09/17/17 07:05 Platelet Estimate Consistent w auto 09/17/17 07:05 Clumped Platelets Not Reportable 09/17/17 07:05 Plt Clumps, EDTA Not Reportable 09/17/17 07:05 Large Platelets Not Reportable 09/17/17 07:05 Giant Platelets Not Reportable 09/17/17 07:05 Platelet Satelliting Not Reportable 09/17/17 07:05 Plt Morphology Comment Not Reportable 09/17/17 07:05 RBC Morphology Not Reportable 09/17/17 07:05 Dimorphic RBCs Not Reportable 09/17/17 07:05 Polychromasia Not Reportable 09/17/17 07:05 Hypochromasia Not Reportable 09/17/17 07:05 Poikilocytosis Not Reportable 09/17/17 07:05 Anisocytosis 1+ 09/17/17 07:05 Microcytosis 1+ 09/17/17 07:05 Macrocytosis Not Reportable 09/17/17 07:05 Spherocytes Not Reportable 09/17/17 07:05 Pappenheimer Bodies Not Reportable 09/17/17 07:05 Sickle Cells Not Reportable 09/17/17 07:05 Target Cells Not Reportable 09/17/17 07:05 Tear Drop Cells Not Reportable 09/17/17 07:05 Ovalocytes Few 09/17/17 07:05 Helmet Cells Not Reportable 09/17/17 07:05 [place] Bodies Not Reportable 09/17/17 07:05 [place] Rings Not Reportable 09/17/17 07:05 [place] Cells Not Reportable 09/17/17 07:05 Bite Cells Not Reportable 09/17/17 07:05 Crenated Cell Not Reportable 09/17/17 07:05 Elliptocytes Not Reportable 09/17/17 07:05 Acanthocytes (Spur) Not Reportable 09/17/17 07:05 Rouleaux Not Reportable 09/17/17 07:05 Hemoglobin C Crystals Not Reportable 09/17/17 07:05 Schistocytes Not Reportable 09/17/17 07:05 Malaria parasites Not Reportable 09/17/17 07:05 Randal Bodies Not Reportable 09/17/17 07:05 Hem Pathologist Commnt No 09/17/17 07:05 PT 13.8 Sec. (12.2-14.9) 09/15/17 14:41 INR 1.01 (0.87-1.13) 09/15/17 14:41 APTT 20.1 Sec. (24.2-36.6) L 09/15/17 14:41 Thrombin Time 14.8 Sec. (15.1-19.6) L 09/15/17 14:41 Sodium 143 mmol/L (137-145) 09/17/17 07:05 Potassium 5.0 mmol/L (3.6-5.0) 09/17/17 07:05 Chloride 108.2 mmol/L (98-107) H 09/17/17 07:05 Carbon Dioxide 23 mmol/L (22-30) 09/17/17 07:05 Anion Gap 17 mmol/L 09/17/17 07:05 BUN 32 mg/dL (7-17) H 09/17/17 07:05 Creatinine 1.6 mg/dL (0.7-1.2) H 09/17/17 07:05 Estimated GFR 37 ml/min 09/17/17 07:05 BUN/Creatinine Ratio 20 % 09/17/17 07:05 Glucose 85 mg/dL (65-100) 09/17/17 07:05 POC Glucose 107 (70-105) H 09/16/17 16:21 Calcium 9.0 mg/dL (8.4-10.2) 09/17/17 07:05 Troponin T < 0.010 ng/mL (0.00-0.029) 09/15/17 14:41 Triglycerides 64 mg/dL (2-149) 09/16/17 07:17 Cholesterol 212 mg/dL (50-199) H 09/16/17 07:17 LDL Cholesterol Direct 165 mg/dL (50-130) H 09/16/17 07:17 HDL Cholesterol 60 mg/dL (40-59) H 09/16/17 07:17 Cholesterol/HDL Ratio 3.53 % 09/16/17 07:17 Vitamin B12 791.4 pg/mL (211-911) 09/16/17 20:10 Folate 8.65 ng/mL (7.3-26.0) 09/16/17 20:09 TSH 0.604 mlU/mL (0.270-4.200) 09/16/17 20:11 Free T4 1.14 ng/dL (0.76-1.46) 09/16/17 20:01
[2017-09-18] MEDS: TYLENOL PO PRN (17:36)
[2017-09-18 18:11] LABS: Bacteria,Urine 1+ /HPF (Negative); Bilirubin,Urine NEG (Negative); Blood,Urine NEG (Negative); Color,Urine Yellow (Yellow); Mucus,Urine FEW /HPF; Protein,Urine <15 mg/dL mg/dL (Negative); Urobilinogen,Urine < 2.0 mg/dL (<2.0)
[2017-09-18 18:12] LABS: RBC,Urine < 1.0 /HPF (0.0-6.0)
[2017-09-18] MEDS ORDERED: PERCOCET 5/325 PO ONE (22:08)
[2017-09-19] MEDS: BABY ASPIRIN PO SCH (10:31)
[2017-09-19] MEDS: MILK OF MAGNESIA PO PRN (11:32)
--- NOTE | 2017-09-19 14:03 | Progress Note ---
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 Continue occupational therapy. Most likely will need half-way facility placement. We'll wait for skilled placement half-way facility a.m. Patient at present is poor rehabilitation potential secondary to cognitive reasons (2) Hypertension Current Visit: Yes Status: Acute Plan to address problem: Ratio has fair control of blood pressure with oral anti-hypertensives. (3) Hyperlipidemia Current Visit: Yes Status: Acute Plan to address problem: Continue statin LDL was 200. (4) Hip pain Current Visit: Yes Status: Acute Plan to address problem: She hasn't had left hip pain. X-ray consistent with objective findings of arthritis. History Interval history: PT appears to be sleeping a lot. I have gone in twice a day. She is arousable poor historian attempts to make needs known. Hospitalist Physical - Constitutional Vitals: Temp Pulse Resp BP Pulse Ox 97.9 F 68 20 144/59 98 09/19/17 08:09 09/19/17 08:09 09/19/17 08:09 09/19/17 08:09 09/19/17 08:09 General appearance: Present: no acute distress, well-nourished - EENT Eyes: Present: PERRL, EOM intact ENT: clear oral mucosa, dentition normal, no hearing intact - Neck Neck: Present: supple, normal ROM - Respiratory Respiratory: bilateral: CTA - Cardiovascular Rhythm: regular Heart Sounds: Present: S1 & S2 - Extremities Extremities: no ischemia, pulses intact, pulses symmetrical Extremity abnormal: edema - Abdominal General gastrointestinal: soft, non-tender, non-distended - Integumentary Integumentary: Present: clear, warm, dry - Neurologic Neurologic: CNII-XII intact, focal deficits Results - Labs CBC & Chem 7: 09/17/17 07:05 09/17/17 07:05 Labs: Laboratory Last Values WBC 4.3 K/mm3 (4.5-11.0) L 09/17/17 07:05 RBC 3.80 M/mm3 (3.65-5.03) 09/17/17 07:05 Hgb 10.5 gm/dl (10.1-14.3) 09/17/17 07:05 Hct 32.1 % (30.3-42.9) 09/17/17 07:05 MCV 85 fl (79-97) 09/17/17 07:05 MCH 28 pg (28-32) 09/17/17 07:05 MCHC 33 % (30-34) 09/17/17 07:05 RDW 15.6 % (13.2-15.2) H 09/17/17 07:05 Plt Count 163 K/mm3 (140-440) 09/17/17 07:05 Lymph % (Auto) 45.6 % (13.4-35.0) H 09/15/17 22:07 Holt % (Auto) 10.4 % (0.0-7.3) H 09/15/17 22:07 Eos % (Auto) 5.4 % (0.0-4.3) H 09/15/17 22:07 Baso % (Auto) 0.8 % (0.0-1.8) 09/15/17 22:07 Lymph # 2.3 K/mm3 (1.2-5.4) 09/15/17 22:07 Holt # 0.5 K/mm3 (0.0-0.8) 09/15/17 22:07 Eos # 0.3 K/mm3 (0.0-0.4) 09/15/17 22:07 Baso # 0.0 K/mm3 (0.0-0.1) 09/15/17 22:07 Add Manual Diff Complete 09/17/17 07:05 Total Counted 100 09/17/17 07:05 Seg Neutrophils % Crime Lab Analyst 09/17/17 07:05 Seg Neuts % (Manual) 40.0 % (40.0-70.0) 09/17/17 07:05 Band Neutrophils % 1.0 % 09/17/17 07:05 Lymphocytes % (Manual) 39.0 % (13.4-35.0) H 09/17/17 07:05 Reactive Lymphs % (Man) 3.0 % 09/17/17 07:05 Monocytes % (Manual) 12.0 % (0.0-7.3) H 09/17/17 07:05 Eosinophils % (Manual) 5.0 % (0.0-4.3) H 09/17/17 07:05 Basophils % (Manual) 0 % (0.0-1.8) 09/17/17 07:05 Metamyelocytes % 0 % 09/17/17 07:05 Myelocytes % 0 % 09/17/17 07:05 Promyelocytes % 0 % 09/17/17 07:05 Blast Cells % 0 % 09/17/17 07:05 Nucleated RBC % Not Reportable 09/17/17 07:05 Seg Neutrophils # 1.9 K/mm3 (1.8-7.7) 09/15/17 22:07 Seg Neutrophils # Man 1.7 K/mm3 (1.8-7.7) L 09/17/17 07:05 Band Neutrophils # 0.0 K/mm3 09/17/17 07:05 Lymphocytes # (Manual) 1.7 K/mm3 (1.2-5.4) 09/17/17 07:05 Abs React Lymphs (Man) 0.1 K/mm3 09/17/17 07:05 Monocytes # (Manual) 0.5 K/mm3 (0.0-0.8) 09/17/17 07:05 Eosinophils # (Manual) 0.2 K/mm3 (0.0-0.4) 09/17/17 07:05 Basophils # (Manual) 0.0 K/mm3 (0.0-0.1) 09/17/17 07:05 Metamyelocytes # 0.0 K/mm3 09/17/17 07:05 Myelocytes # 0.0 K/mm3 09/17/17 07:05 Promyelocytes # 0.0 K/mm3 09/17/17 07:05 Blast Cells # 0.0 K/mm3 09/17/17 07:05 WBC Morphology Not Reportable 09/17/17 07:05 Hypersegmented Neuts Not Reportable 09/17/17 07:05 Hyposegmented Neuts Not Reportable 09/17/17 07:05 Hypogranular Neuts Not Reportable 09/17/17 07:05 Smudge Cells Not Reportable 09/17/17 07:05 Toxic Granulation Not Reportable 09/17/17 07:05 Toxic Vacuolation Not Reportable 09/17/17 07:05 Dohle Bodies Not Reportable 09/17/17 07:05 Pelger-Huet Anomaly Not Reportable 09/17/17 07:05 Yoan Rods Not Reportable 09/17/17 07:05 Platelet Estimate Consistent w auto 09/17/17 07:05 Clumped Platelets Not Reportable 09/17/17 07:05 Plt Clumps, EDTA Not Reportable 09/17/17 07:05 Large Platelets Not Reportable 09/17/17 07:05 Giant Platelets Not Reportable 09/17/17 07:05 Platelet Satelliting Not Reportable 09/17/17 07:05 Plt Morphology Comment Not Reportable 09/17/17 07:05 RBC Morphology Not Reportable 09/17/17 07:05 Dimorphic RBCs Not Reportable 09/17/17 07:05 Polychromasia Not Reportable 09/17/17 07:05 Hypochromasia Not Reportable 09/17/17 07:05 Poikilocytosis Not Reportable 09/17/17 07:05 Anisocytosis 1+ 09/17/17 07:05 Microcytosis 1+ 09/17/17 07:05 Macrocytosis Not Reportable 09/17/17 07:05 Spherocytes Not Reportable 09/17/17 07:05 Pappenheimer Bodies Not Reportable 09/17/17 07:05 Sickle Cells Not Reportable 09/17/17 07:05 Target Cells Not Reportable 09/17/17 07:05 Tear Drop Cells Not Reportable 09/17/17 07:05 Ovalocytes Few 09/17/17 07:05 Helmet Cells Not Reportable 09/17/17 07:05 [place] Bodies Not Reportable 09/17/17 07:05 [place] Rings Not Reportable 09/17/17 07:05 Sriram Cells Not Reportable 09/17/17 07:05 Bite Cells Not Reportable 09/17/17 07:05 Crenated Cell Not Reportable 09/17/17 07:05 Elliptocytes Not Reportable 09/17/17 07:05 Acanthocytes (Spur) Not Reportable 09/17/17 07:05 Rouleaux Not Reportable 09/17/17 07:05 Hemoglobin C Crystals Not Reportable 09/17/17 07:05 Schistocytes Not Reportable 09/17/17 07:05 Malaria parasites Not Reportable 09/17/17 07:05 Randal Bodies Not Reportable 09/17/17 07:05 Hem Pathologist Commnt No 09/17/17 07:05 PT 13.8 Sec. (12.2-14.9) 09/15/17 14:41 INR 1.01 (0.87-1.13) 09/15/17 14:41 APTT 20.1 Sec. (24.2-36.6) L 09/15/17 14:41 Thrombin Time 14.8 Sec. (15.1-19.6) L 09/15/17 14:41 Sodium 143 mmol/L (137-145) 09/17/17 07:05 Potassium 5.0 mmol/L (3.6-5.0) 09/17/17 07:05 Chloride 108.2 mmol/L (98-107) H 09/17/17 07:05 Carbon Dioxide 23 mmol/L (22-30) 09/17/17 07:05 Anion Gap 17 mmol/L 09/17/17 07:05 BUN 32 mg/dL (7-17) H 09/17/17 07:05 Creatinine 1.6 mg/dL (0.7-1.2) H 09/17/17 07:05 Estimated GFR 37 ml/min 09/17/17 07:05 BUN/Creatinine Ratio 20 % 09/17/17 07:05 Glucose 85 mg/dL (65-100) 09/17/17 07:05 POC Glucose 107 (70-105) H 09/16/17 16:21 Calcium 9.0 mg/dL (8.4-10.2) 09/17/17 07:05 Troponin T < 0.010 ng/mL (0.00-0.029) 09/15/17 14:41 Triglycerides 64 mg/dL (2-149) 09/16/17 07:17 Cholesterol 212 mg/dL (50-199) H 09/16/17 07:17 LDL Cholesterol Direct 165 mg/dL (50-130) H 09/16/17 07:17 HDL Cholesterol 60 mg/dL (40-59) H 09/16/17 07:17 Cholesterol/HDL Ratio 3.53 % 09/16/17 07:17 Vitamin B12 791.4 pg/mL (211-911) 09/16/17 20:10 Folate 8.65 ng/mL (7.3-26.0) 09/16/17 20:09 TSH 0.604 mlU/mL (0.270-4.200) 09/16/17 20:11 Free T4 1.14 ng/dL (0.76-1.46) 09/16/17 20:01 Urine Color Yellow (Yellow) 09/18/17 17:45 Urine Turbidity Clear (Clear) 09/18/17 17:45 Urine pH 7.0 (5.0-7.0) 09/18/17 17:45 Ur Specific [place] 1.015 (1.003-1.030) 09/18/17 17:45 Urine Protein <15 mg/dl mg/dL (Negative) 09/18/17 17:45 Urine Glucose (UA) Neg mg/dL (Negative) 09/18/17 17:45 Urine Ketones Neg mg/dL (Negative) 09/18/17 17:45 Urine Blood Neg (Negative) 09/18/17 17:45 Urine Nitrite Pos (Negative) 09/18/17 17:45 Urine Bilirubin Neg (Negative) 09/18/17 17:45 Urine Urobilinogen < 2.0 mg/dL (<2.0) 09/18/17 17:45 Ur Leukocyte Esterase Neg (Negative) 09/18/17 17:45 Urine WBC (Auto) 1.0 /HPF (0.0-6.0) 09/18/17 17:45 Urine RBC (Auto) < 1.0 /HPF (0.0-6.0) 09/18/17 17:45 U Epithel Cells (Auto) 3.0 /HPF (0-13.0) 09/18/17 17:45 Urine Bacteria (Auto) 1+ /HPF (Negative) 09/18/17 17:45 Urine Mucus Few /HPF 09/18/17 17:45
[2017-09-20] MEDS: BABY ASPIRIN PO SCH (10:14)
--- NOTE | 2017-09-20 10:26 | Progress Note ---
Assessment and Plan This is a 82-year-old woman with a history of hypertension, recent subdural hematoma probably 6 weeks ago was brought to the emergency room because she had a follow-up with her neurologist or neurosurgeon, CT head was done outpatient and it showed subacute CVA. She was sent to the emergency room for evaluation. Patient does have memory problems, she is unable to give the detail history. 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 Continue occupational therapy. Most likely will need penitentiary facility placement. We'll wait for skilled placement penitentiary facility a.m. Patient at present is poor rehabilitation potential secondary to cognitive reasons - Hypertension Ratio has fair control of blood pressure with oral anti-hypertensives. - Hyperlipidemia Continue statin LDL was 200. - Hip pain She hasn't had left hip pain. X-ray consistent with objective findings of arthritis. - DVT prophylaxis with SCD. Pt had - Disposition: D/c home after arranging home PT/OT Subjective Date of service: 09/20/17 Principal diagnosis: subacute CVA, HTN, HLD, Interval history: Pt seen and examined. lying quietly in bed. No new complaint Objective - Constitutional Vitals: Vital Signs - 12hr 09/19/17 09/19/17 09/20/17 22:55 22:56 00:23 Temperature 98.2 F Pulse Rate 88 73 Pulse Rate [ 67 Apical] Respiratory 18 18 Rate Blood Pressure 149/56 O2 Sat by Pulse 99 96 Oximetry 09/20/17 09/20/17 04:31 08:00 Temperature 97.8 F 99.0 F Pulse Rate 77 71 Pulse Rate [ Apical] Respiratory 18 18 Rate Blood Pressure 162/56 106/46 O2 Sat by Pulse 96 98 Oximetry General appearance: Present: no acute distress, well-nourished - EENT Eyes: PERRL, EOM intact - Neck Neck: supple, normal ROM - Respiratory Respiratory effort: normal Respiratory: bilateral: CTA - Cardiovascular Rhythm: regular Heart Sounds: Present: S1 & S2. Absent: gallop, rub Extremities: pulses intact, No edema, normal color, Full ROM - Gastrointestinal General gastrointestinal: Present: soft, non-tender, normal bowel sounds - Integumentary Integumentary: clear, warm, dry - Musculoskeletal Musculoskeletal: generalized weakness - Neurologic Neurologic: moves all extremities - Psychiatric Psychiatric: appropriate mood/affect, no intact judgment & insight, no memory intact - Labs CBC & Chem 7: 09/17/17 07:05 09/17/17 07:05
[2017-09-20] MEDS: TYLENOL PO PRN ×2 (16:41→22:10)
[2017-09-21] MEDS: MILK OF MAGNESIA PO PRN (05:36)
[2017-09-21] MEDS: BABY ASPIRIN PO SCH (10:37)
[2017-09-21 12:20] VITALS: BP 152/50
--- NOTE | 2017-09-21 14:27 | Discharge Summary ---
Providers - Providers Date of Admission: 09/15/17 21:51 Date of discharge: 09/21/17 Attending physician: WILD DUKE 09/15/17 21:51 Occupational Therapy Evaluate and Treat [CONS] Routine Comment: Reason For Exam: Neuro deficits Physical Therapy Evaluation and Treat [CONS] Routine Comment: Reason For Exam: Neuro deficits 09/15/17 21:57 Consult to Physician [CONS] Routine Comment: Consulting Provider: CANDACE YIN Physician Instructions: Reason For Exam: cva Primary care physician: AGING BOX HAND Hospitalization Condition: Fair Hospital course: Patient is a 82-year-old woman with a history of hypertension, recent subdural hematoma after fall around 2017 (went to [facility]) and 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 Patient does have memory problems, she is unable to give the detail history. 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 - ARF with suspected CKD 3, vasomotor nephropathy, poa, resolving - Hypertension fair control of blood pressure with oral anti-hypertensives. - Hyperlipidemia Continue statin LDL was 200. - Hip pain She hasn't had left hip pain. X-ray consistent with objective findings of arthritis. D/C back to home with hospice for end stage CAD per history Disposition: DC-50 TO HOSPICE (HOME) Time spent for discharge: 32 minutes Core Measure Documentation - Palliative Care Palliative Care/ Comfort Measures: Hospice Care - Core Measures Any of the following diagnoses?: stroke - VTE Discharge Requirements Deep Vein Thrombosis/Pulmonary Embolism Present on Admission: No Has pt received <5 days of overlap therapy or INR<2.0: No Anticoagulant overlap therapy prescribed at discharge: No Contraindication No Overlap Therapy order at DC: Not Indicated - Stroke Discharge Requirements Statin for LDL = or >70 mg/dl on DC: Yes Anticoag for atrial fib/atrial flutter: Not Applicable Antithrombotic for ischemic stroke: Yes Exam - Physical Exam Narrative exam: GEN: WDWN, NAD, Awake, Alert, Orientated x 3, with hint for year HEENT: NCAT, EOMI, PERRL, OP Clear NECK: supple, no adenopathy, no thyromegaly, no JVD CVS/HEART: RRR, normal S1S2, pulses present bilaterally CHEST/LUNGS: CTA B, Symmetrical chest expansion, good air entry bilaterally GI/Abdomen: soft, NTND, good bowel sounds, no guarding or rebound /Bladder: no suprapubic tenderness, no CVA or paraspinal tenderness EXT/Skin: BLE edema no obvious rash MSK: FROM x 4 Neuro: CN 2-12 grossly intact, finger to nose with mild dysmetria with right drift Psych: calm - Constitutional Vitals: Temp Pulse Resp BP Pulse Ox 98.6 F 64 16 152/50 99 09/21/17 11:51 09/21/17 11:51 09/21/17 11:51 09/21/17 11:51 09/21/17 11:51 Plan Activity: up only with assistance, fall precautions, other (no strenous activity ) Diet: low salt Additional Instructions: Stopped the lasix and Mobic due to renal issues, see Dr. Angela to recheck kidney function. See PCP regarding resuming water pills. Started on Norvasc for blood pressure which can cause ankle swelling for some but not all, see PCP if you have more swelling Follow up with: PRIMARY CARE,MD [Primary Care Provider] - 3-5 Days FRANC TAPIA MD [Staff Physician] - 7 Days KEO ANGELA MD [Staff Physician] - 7 Days Prescriptions: AtorvaSTATin [Lipitor] 40 mg PO QHS #30 tablet Acetaminophen [Acetaminophen TAB] 650 mg PO Q4H PRN #10 tablet PRN Reason: Pain, Mild (1-3) Amlodipine Besylate [Norvasc] 5 mg PO DAILY #30 tablet Aspirin [Aspirin BABY CHEW TAB] 81 mg PO QDAY #30 tab.chew
--- NOTE | 2017-09-21 16:10 | Vascular Lab Report ---
CAROTID DUPLEX STUDY: RIGHT PSVEDV CCA PROX:809 CCA DIST:9611 ICA PROX:8715 ICA MID:[id number] ICA DIST:[id number] ECA: 680 VERT: 55 0 LEFT PSVEDV CCA PROX:14849 CCA DIST:789 ICA PROX:8214 ICA MID:8518 ICA DIST:9420 ECA: 650 VERT: 68 14 REASON FOR EXAM: Stroke. COMMENTS ON THE RIGHT: Doppler frequency analysis is consistent with 16 to 49 percent diameter reduction of the internal carotid artery. Minimal amount of plaque is seen. The common carotid artery is patent. The external carotid artery is patent. The vertebral artery has antegrade flow. COMMENTS ON THE LEFT: Doppler frequency analysis is consistent with 16 to 49 percent diameter reduction of the internal carotid artery. Minimal amount of plaque is seen. The common carotid artery is patent. The external carotid artery is patent. The vertebral artery has antegrade flow. IMPRESSION: Less than 50% diameter reduction in the internal carotid arteries bilaterally.
== END 2017-09-21 17:45 | disposition hospice, home (50) | DRG 64 ==
LOC: ED 14:12 → 4A 21:51
PROVIDERS: ADMIT Internal Medicine; ATTEND Internal Medicine
DX: I63.9 Cerebral infarction, unspecified (principal); N17.0 Acute kidney failure with tubular necrosis; I25.10 Atherosclerotic heart disease of native coronary artery without angina pectoris; N18.3 Chronic kidney disease, stage 3 (moderate); I12.9 Hypertensive chronic kidney disease with stage 1 through stage 4 chronic kidney disease, or unspecified chronic kidney disease; E78.5 Hyperlipidemia, unspecified; M25.551 Pain in right hip; Z96.653 Presence of artificial knee joint, bilateral; Z90.710 Acquired absence of both cervix and uterus; Z83.3 Family history of diabetes mellitus; Z82.49 Family history of ischemic heart disease and other diseases of the circulatory system; Z82.3 Family history of stroke; Z79.899 Other long term (current) drug therapy
CPT/HCPCS: 36415; 70450; 70544; 70547; 70551; 80048; 80061; 81001; 82306; 82607; 82747; 82962; 84425; 84439; 84443; 84484; 85007; 85025; 85610; 85670; 85730; 87086; 93005; 93010; 93306; 93880; A9270-GY; G8987-GO; G8988-GO; G8989-GO; J7030

== ENCOUNTER 2019-03-23 12:31 | Inpatient (IN) | payer MEDICARE ==
[2019-03-23 14:10] LABS: Bilirubin,Urine NEG (Negative); Blood,Urine NEG (Negative); Color,Urine Yellow (Yellow); Hyaline Casts,Urine 3 /LPF; Mucus,Urine FEW /HPF; Urobilinogen,Urine < 2.0 mg/dL (<2.0)
[2019-03-23 14:17] LABS: Amphetamine Screen,Urine PRESUMPTIVE NEGATIVE; Benzodiazepines Screen,Urine PRESUMPTIVE NEGATIVE; Cannabinoid Screen,Urine PRESUMPTIVE NEGATIVE; Cocaine Screen,Urine PRESUMPTIVE NEGATIVE; Methadone Screen,Urine PRESUMPTIVE NEGATIVE; Opiate Screen,Urine PRESUMPTIVE NEGATIVE
[2019-03-23 14:30] LABS: Basophils # (Auto) 0.1 K/mm3 (0.0-0.1); Basophils % (Auto) 1.2 % (0.0-1.8); Eosinophils # (Auto) 0.1 K/mm3 (0.0-0.4); Eosinophils % (Auto) 1.4 % (0.0-4.3); Hematocrit 39.2 % (30.3-42.9); Hemoglobin 12.3 gm/dl (10.1-14.3); Lymphocytes # (Auto) 2.9 K/mm3 (1.2-5.4); Lymphocytes % (Auto) 33.2 % (13.4-35.0); Mean Corpuscular HGB Conc 31 % (30-34); Mean Corpuscular Volume 85 fl (79-97); Monocytes # (Auto) 0.6 K/mm3 (0.0-0.8); Monocytes % (Auto) 7.3 % (0.0-7.3); Platelet Count 262 K/mm3 (140-440); Red Cell Distribution Width 15.3 % (13.2-15.2)
[2019-03-23 14:50] LABS: INR 1.19 (0.87-1.13)
[2019-03-23 14:51] LABS: Thrombin Time 19.6 Sec. (15.1-19.6)
[2019-03-23 14:58] LABS: Creatine Kinase MB < 1.0 ng/mL (0.0-4.0)
[2019-03-23 14:59] LABS: Alanine Aminotransferase 35 units/L (7-56); Albumin 2.9 g/dL (3.9-5); BUN/Creatinine Ratio 42; Blood Urea Nitrogen 55 mg/dL (7-17); Calcium 9.8 mg/dL (8.4-10.2); Hemolysis Index 6
--- NOTE | 2019-03-23 15:10 | Emergency Department Report ---
HPI - General Chief Complaint: Altered Mental Status Time Seen by Provider: 03/23/19 13:15 - HPI HPI: 83-year-old -[place] female presents to the emergency department via EMS from home with a complaint of a 1 day history of altered mental status since yesterday afternoon. The patient has a history of hypertension, hyperlipidemia, previous subdural hematoma and CVA with residual left-sided deficits. She had a stroke here in September 2017 and then had another stroke in January of last year at [facility] in [place]. For the past 24 hours the patient's son says that she has been having a right-sided gaze preference and has been staring off. She will answer questions but is very slow to respond. ED Past Medical Hx - Past Medical History Previous Medical History?: Yes Hx Hypertension: Yes Hx CVA: Yes (subdural hematoma 2017) Additional medical history: High cholesterol - Surgical History Past Surgical History?: Yes Additional Surgical History: Bilateral Total Knee replacement, hysterectomy - Social History Smoking Status: Never Smoker Substance Use Type: None - Medications Home Medications: Home Medications Medication Instructions Recorded Confirmed Last Taken Type Acetaminophen [Acetaminophen TAB] 650 mg PO Q4H PRN #10 tablet 09/21/17 03/23/19 Unknown Rx Amlodipine Besylate [Norvasc] 5 mg PO DAILY #30 tablet 09/21/17 03/23/19 Unknown Rx Aspirin [Aspirin BABY CHEW TAB] 81 mg PO QDAY #30 tab.chew 09/21/17 03/23/19 Unknown Rx AtorvaSTATin [Lipitor] 40 mg PO QHS #30 tablet 09/21/17 03/23/19 Unknown Rx Lasix TAB 40 mg PO DAILY 03/23/19 03/23/19 Unknown History Potassium Chloride 15 mg PO DAILY 03/23/19 03/23/19 Unknown History ED Review of Systems ROS: Stated complaint: ALTERED MENTAL STATUS Other details as noted in HPI Comment: Unobtainable due to pts medical conditions Physical Exam - Physical Exam Vital Signs: Vital Signs 03/23/19 13:43 Temperature 99 F Pulse Rate 90 Respiratory 20 Rate Blood Pressure 170/83 O2 Sat by Pulse 99 Oximetry Physical Exam: GENERAL: Patient is chronically ill and debilitated. HENT: Normocephalic. Atraumatic. Patient has moist mucous membranes. EYES: Patient has a right-sided gaze preference. Pupils equal reactive to light bilaterally. NECK: Supple. Trachea is midline. CHEST/LUNGS: Clear to auscultation. There is no respiratory distress noted. HEART/CARDIOVASCULAR: Regular. There is no tachycardia. There is no murmur. ABDOMEN: Abdomen is soft, nontender. Patient has normal bowel sounds. There is no abdominal distention. SKIN: Skin is warm and dry. NEURO: Patient is awake and cooperative but AAO x2 to person and place but not time. Left-sided hemiparesis. Left-sided facial droop. MUSCULOSKELETAL: There is no tenderness or deformity. There is no evidence of acute injury. ED Course Vital Signs 03/23/19 13:43 Temperature 99 F Pulse Rate 90 Respiratory 20 Rate Blood Pressure 170/83 O2 Sat by Pulse 99 Oximetry ED Medical Decision Making - Lab Data Result diagrams: 03/23/19 14:01 03/23/19 14:01 - EKG Data -: EKG Interpreted by Ri EKG shows normal: sinus rhythm, axis (Left axis deviation), intervals, QRS complexes, ST-T waves Rate: normal - EKG Data When compared to previous EKG there are: previous EKG unavailable Interpretation: other (Sinus rhythm, left axis deviation, rate of 94 bpm) - Radiology Data Radiology results: report reviewed CT head/brain wo con INDICATION / CLINICAL INFORMATION: 83 years Female; Stroke symptoms. TECHNIQUE: Routine CT head without contrast. All CT scans at this ocation are performed using CT dose reduction for ALARA by means of automated exposure control. COMPARISON: No previous CT exams are currently available for direct comparison. FINDINGS: BRAIN / INTRACRANIAL CONTENTS: There is a large MCA infarct most notably involving posterior right frontal lobe and superior insular with edema. Furthermore, there appears to be some component of sulcal effacement superiorly and correlation would be needed regarding subacute process. There is no clear CT evidence of hemorrhagic transformation. There is also component involving the right moreno radiata which may be more chronic at. There is also an infarct involving the posterior left cerebrum which appears ch ronic with encephalomalacia. Additionally, there is mild ex vacuo dilatation of the posterior left lateral ventricle. ORBITS: No significant abnormality of visualized orbits. SINUSES / MASTOIDS: No significant abnormality the visualized paranasal sinuses or mastoid air cells. CRANIOCERVICAL JUNCTION: No significant abnormality. ADDITIONAL FINDINGS: None. IMPRESSION: 1. There is a large right MCA infarct most notably involving the right frontoparietal region. There is suggestion of some mass effect superiorly and correlation be needed regarding late subacute process. 2. There is a more chronic appearing infarct involving the posterior left cerebrum. 3. There is no CT evidence of acute intracranial hemorrhage. - Medical Decision Making This patient was brought to the emergency department after she exhibited some altered mental status and what appears to be a gaze preference over the past 24 hours. The patient does have a history of previous CVA with residual left-sided deficits, including her last stroke being in February at a hospital in [place]. Since there is no last known well time and it has been about 24 hours since the symptoms began, the patient did not appear to be a TPA or thrombectomy candidate. No code stroke was called but the patient was seen by the telemedicine neurologist later in her ED course and he agrees with the plan for admission for further evaluation. Dr. Gomez, neurologist, gave the patient an NIH stroke scale of 16. CT scan of the head shows a large right frontoparietal infarct that is subacute versus chronic. The patient's labs show a sodium of 163 which may be the reason for the patient's change in mental status as well. I spoke to the patient's son who has rescinded the [facility] and would like the patient admitted for further evaluation and treatment. The patient was accepted for admission by the hospitalist, Dr Duckworth. Critical Care Time: Yes Critical care time in (mins) excluding proc time.: 35 Critical care attestation.: If time is entered above; I have spent that time in minutes in the direct care of this critically ill patient, excluding procedure time. Due to the immediate potential for life-threatening deterioration due to underlying acute neurological illness, I spent 35 minutes providing critical care. Critical care time includes initial evaluation, multiple re-evaluations, ordering and inte rpretation of labs and imaging, discussion with the patient and her son, discussion with the telemedicine neurologist. Critical Care Time: 35 minutes ED Disposition Clinical Impression: Confusion, Abnormal head CT, Acute hypernatremia CVA (cerebral vascular accident) Qualifiers: CVA mechanism: unspecified Qualified Code(s): I63.9 - Cerebral infarction, unspecified Disposition: -09 OP ADMIT IP TO THIS HOSP Is pt being admited?: Yes Condition: Serious Referrals: PRIMARY CARE,MD [Primary Care Provider] - 3-5 Days Time of Disposition: 17:29
--- NOTE | 2019-03-23 15:29 | Cat Scan Report ---
CT head/brain wo con INDICATION / CLINICAL INFORMATION: 83 years Female; Stroke symptoms. TECHNIQUE: Routine CT head without contrast. All CT scans at this location are performed using CT dos e reduction for ALARA by means of automated exposure control. COMPARISON: No previous CT exams are currently available for direct comparison. FINDINGS: BRAIN / INTRACRANIAL CONTENTS: There is a large MCA infarct most notably involving posterior right fr ontal lobe and superior insular with edema. Furthermore, there appears to be some component of sulcal effacement superiorly and correlation would be needed regarding subacute process. There is no clear CT evidence of hemorrhagic transformation. There is also component involving the right moreno radiata which may be more chronic at. There is also an infarct involving the posterior left cerebrum which appears chronic with encephaloma lacia. Additionally, there is mild ex vacuo dilatation of the posterior left lateral ventricle. ORBITS: No significant abnormality of visualized orbits. SINUSES / MASTOIDS: No significant abnormality the visualized paranasal sinuses or mastoid air cells. CRANIOCERVICAL JUNCTION: No significant abnormality. ADDITIONAL FINDINGS: None. IMPRESSION: 1. There is a large right MCA infarct most notably involving the right frontoparietal region. There i s suggestion of some mass effect superiorly and correlation be needed regarding late subacute process . 2. There is a more chronic appearing infarct involving the posterior left cerebrum. 3. There is no CT evidence of acute intracranial hemorrhage. Signer Name: Onesimo Herring MD Signed: 03/23/2019 3:24 PM Workstation Name: [id number]
--- NOTE | 2019-03-23 16:52 | History and Physical Report ---
History of Present Illness Chief complaint: My mom has been acting strange History of present illness: 83 YO Female with HTN, HLD, SDH who is currently on home hospice care with [facility] presents to ED for evalulation. Pt is confused and unable to provide history. Patient history taken from patient's son who is at bedside during exam and interview. As per the patient's son the patient has experienced confusion with concomitant nonsensical speech over the past 1 day with persistent symptoms over the same timeframe. EMS was notified and upon arrival the patient was found to be in distress and subsequently transported to [facility] for further care and evaluation. Patient seen and evaluated in the emergency department. Lab and imaging studies reviewed. Patient was found to have left- sided neurologic deficit. A CT scan of the head was obtained and the patient was found to have evidence of subacute right MCA stroke. Tele-neurology consulted. Patient deemed not to be a candidate for TPA. Patient also found to have volume depletion, hyponatremia, metabolic encephalopathy. Patient son revoked hospice benefit at this time and requires supportive care. Advanced care planning conducted in ED. No reports fever, chills, CP, Palpitations, NVD, Syncope, Trauma, vision changes, acute vision loss, productive cough, or recent ill contacts. Prior admission on 10/01/2017 reviewed. No medication listed for reconciliation at time of admission. Past History Past Medical History: hypertension, hyperlipidemia, other (See HPI) Past Surgical History: hysterectomy, total knee replacement Social history: , lives with family. denies: smoking, alcohol abuse, prescription drug abuse Family history: hypertension Medications and Allergies Allergies Allergy/AdvReac Type Severity Reaction Status Date / Time No Known Allergies Allergy Verified 10/01/17 07:10 Home Medications Medication Instructions Recorded Confirmed Last Taken Type Acetaminophen [Acetaminophen TAB] 650 mg PO Q4H PRN #10 tablet 09/21/17 03/23/19 Unknown Rx Amlodipine Besylate [Norvasc] 5 mg PO DAILY #30 tablet 09/21/17 03/23/19 Unknown Rx Aspirin [Aspirin BABY CHEW TAB] 81 mg PO QDAY #30 tab.chew 09/21/17 03/23/19 Unknown Rx AtorvaSTATin [Lipitor] 40 mg PO QHS #30 tablet 09/21/17 03/23/19 Unknown Rx Lasix TAB 40 mg PO DAILY 03/23/19 03/23/19 Unknown History Potassium Chloride 15 mg PO DAILY 03/23/19 03/23/19 Unknown History Review of Systems ROS unobtainable: due to mental status Exam - Constitutional Vitals: Temp Pulse Resp BP Pulse Ox 99 F 96 H 16 155/88 96 03/23/19 13:43 03/23/19 15:14 03/23/19 15:14 03/23/19 15:14 03/23/19 15:14 General appearance: Present: mild distress - EENT Eyes: Present: PERRL ENT: hearing intact, clear oral mucosa - Neck Neck: Present: supple, normal ROM - Respiratory Respiratory effort: normal Respiratory: bilateral: CTA - Cardiovascular Heart Sounds: Present: S1 & S2. Absent: rub, click - Extremities Extremities: pulses symmetrical, No edema Peripheral Pulses: within normal limits - Abdominal General gastrointestinal: Present: soft, other (PEG tube in place) - Integumentary Integumentary: Present: clear, warm, dry - Musculoskeletal Musculoskeletal: left sided weakness - Psychiatric Psychiatric: no appropriate mood/affect, no intact judgment & insight, no memory intact - Neurologic Neurologic: no CNII-XII intact, focal deficits, no moves all extremities, no gait normal Results - Labs CBC & Chem 7: 03/23/19 14:01 03/23/19 14:01 Labs: Abnormal lab results 03/23/19 03/23/19 03/23/19 Range/Units 14:01 14:01 14:01 MCH 27 L (28-32) pg RDW 15.3 H (13.2-15.2) % PT 15.3 H (12.2-14.9) Sec. INR 1.19 H (0.87-1.13) Sodium 163 H* (137-145) mmol/L Chloride 121.9 H (98-107) mmol/L BUN 55 H (7-17) mg/dL Creatinine 1.3 H (0.7-1.2) mg/dL Glucose 132 H (65-100) mg/dL POC Glucose (70-105) Albumin 2.9 L (3.9-5) g/dL 03/23/19 Range/Units 14:35 MCH (28-32) pg RDW (13.2-15.2) % PT (12.2-14.9) Sec. INR (0.87-1.13) Sodium (137-145) mmol/L Chloride (98-107) mmol/L BUN (7-17) mg/dL Creatinine (0.7-1.2) mg/dL Glucose (65-100) mg/dL POC Glucose 128 H (70-105) Albumin (3.9-5) g/dL Assessment and Plan - Patient Problems (1) Metabolic encephalopathy Current Visit: Yes Status: Acute Plan to address problem: IV fluid resuscitation therapy, CT head, neurochecks, aspiration precaution, seizure precautions, fall precautions, supportive care. (2) Acute hypernatremia Current Visit: Yes Status: Acute Plan to address problem: IV fluid resuscitation therapy, urine electrolytes, nephrology consulted, repeat BMP in a.m. (3) CVA (cerebral vascular accident) Current Visit: Yes Status: Acute Qualifiers: CVA mechanism: unspecified Qualified Code(s): I63.9 - Cerebral infarction, unspecified Plan to address problem: Discussed diagnosis with the patient son [place]. Patient son elects for comfort care measures and to refrain from aggressive therapy at this time. Discussed risks and benefits of antiplatelet therapy. Patient son request supportive care only at this time and will present himself to the hospital in the morning for further discussion. Patient is currently on hospice services with [facility] and is currently full code. (4) Advance care planning Current Visit: Yes Status: Acute Plan to address problem: Disease education conducted, patient is full code at this time, patient family elected to revoke hospice benefit, patient family knowledge understanding and agreement with care plan. +30 minutes. (5) DVT prophylaxis Current Visit: No Status: Acute Plan to address problem: SCD to bilateral lower extremities while in bed,
--- NOTE | 2019-03-23 16:53 | Emergency Department Report ---
ED Neuro Deficit HPI - General Chief Complaint: Altered Mental Status Stated Complaint: ALTERED MENTAL STATUS Time Seen by Provider: 03/23/19 13:15 Source: family, EMS Mode of arrival: Stretcher Limitations: Altered Mental Status, Physical Limitation - History of Present Illness Initial Comments: [facility] Date of Service: 03/23/2019 Impression: acute worsening confusion and right gaze superimposed over baseline severe L hemiplegia and neglect - DDx recrudescence of recent stroke from hypernatremia vs new stroke. Recommend MRI. Suspect mass effect seen on CT is late subacute infarct. Recommend follow up head CT as well to monitor for progression. Recommendations: MRI ASA LDL a1c tele TTE DVT proph - lovenox permissive htn PT/OT/speech bedside swallow eval inpatient neuro consult CC: AMS; L sided weakness and right gaze deviation History of Present Illness: 83 yo woman with a recent hx of stroke with baseline L sided weakness. She has a hx of SDH 2 years ago as well. Her son noted that she developed confusion and right gaze deviation, along with severely slurred speech starting sometime yesterday. LSN is not clear. Na 165. She was recently discharged from rehab. She has a PEG tube. Diagnostic Testing: CT head shows large R MCA stroke - ? minimal mass effect. Vital Signs: reviewed Exam: RESULT SUMMARY: 18 points NIH Stroke Scale INPUTS: 1A: Level of consciousness > 0 = Alert; keenly responsive 1B: Ask month and age > 2 = 0 questions right 1C: 'Blink eyes' & 'squeeze hands' > 0 = Performs both tasks 2: Horizontal extraocular movements > 1 = Partial gaze palsy: can be overcome 3: Visual christine > 0 = No visual loss 4: Facial palsy > 2 = Partial paralysis (lower face) 5A: Left arm motor drift > 4 = No movement 5B: Right arm motor drift > 0 = No drift for 10 seconds 6A: Left leg motor drift > 4 = No movement 6B: Right leg motor drift > 3 = No effort against gravity 7: Limb Ataxia > 0 = No ataxia 8: Sensation > 0 = Normal; no sensory loss 9: Language/aphasia > 0 = Normal; no aphasia 10: Dysarthria > 2 = Severe dysarthria: unintelligible slurring or out of proportion to dysphasia 11: Extinction/inattention > 0 = No abnormality Medical Decision Making: - Extensive number of diagnosis or management options are considered above. - Extensive amount of complex data reviewed. - High risk of complication and/or morbidity or mortality are associated with differential diagnostic considerations above. - There may be uncertain outcome and increased probability of prolonged functional impairment or high probability of severe prolonged functional impairment associated with some of these differential diagnosis. Medical Data Reviewed: 1.Data reviewed include clinical labs, radiology, Medical Tests; 2.Tests results discussed w/performing or interpreting physician; 3.Obtaining/reviewing old medical records; 4.Obtaining case history from another source; 5.Independent review of image, tracing or specimen. Patient was informed the Neurology Consult would happen via TeleHealth consult by way of interactive audio and video telecommunications and consented to receiving care in this manner. - Related Data Home Medications: Home Medications Medication Instructions Recorded Confirmed Last Taken Lasix TAB 40 mg PO DAILY 03/23/19 03/23/19 Unknown Potassium Chloride 15 mg PO DAILY 03/23/19 03/23/19 Unknown Previous Rx's Medication Instructions Recorded Last Taken Type Acetaminophen [Acetaminophen TAB] 650 mg PO Q4H PRN #10 tablet 09/21/17 Unknown Rx Amlodipine Besylate [Norvasc] 5 mg PO DAILY #30 tablet 09/21/17 Unknown Rx Aspirin [Aspirin BABY CHEW TAB] 81 mg PO QDAY #30 tab.chew 09/21/17 Unknown Rx AtorvaSTATin [Lipitor] 40 mg PO QHS #30 tablet 09/21/17 Unknown Rx Allergies/Adverse Reactions: Allergies Allergy/AdvReac Type Severity Reaction Status Date / Time No Known Allergies Allergy Verified 10/01/17 07:10 ED Review of Systems ROS: Stated complaint: ALTERED MENTAL STATUS Other details as noted in HPI ED Past Medical Hx - Past Medical History Previous Medical History?: Yes Hx Hypertension: Yes Hx CVA: Yes (subdural hematoma 2017) Additional medical history: High cholesterol - Surgical History Past Surgical History?: Yes Additional Surgical History: Bilateral Total Knee replacement, hysterectomy - Social History Smoking Status: Never Smoker Substance Use Type: None - Medications Home Medications: Home Medications Medication Instructions Recorded Confirmed Last Taken Type Acetaminophen [Acetaminophen TAB] 650 mg PO Q4H PRN #10 tablet 09/21/17 03/23/19 Unknown Rx Amlodipine Besylate [Norvasc] 5 mg PO DAILY #30 tablet 09/21/17 03/23/19 Unknown Rx Aspirin [Aspirin BABY CHEW TAB] 81 mg PO QDAY #30 tab.chew 09/21/17 03/23/19 Unknown Rx AtorvaSTATin [Lipitor] 40 mg PO QHS #30 tablet 09/21/17 03/23/19 Unknown Rx Lasix TAB 40 mg PO DAILY 03/23/19 03/23/19 Unknown History Potassium Chloride 15 mg PO DAILY 03/23/19 03/23/19 Unknown History ED Neuro Physical Exam - General Limitations: Altered Mental Status, Physical Limitation Suspected Stroke: Yes - NIHSS Assessment Interval: Baseline 1a. Level of Consciousness: alert/keenly responsive 1b. LOC Questions: answers no questions correctly 1c. LOC Commands: performs tasks correctly 2. Best Gaze: partial gaze palsy 3. Visual: no visual loss 4. Facial Palsy: partial paralysis 5b. Motor Arm Right: no drift 5a. Motor Arm Left: no movement 6a. Motor Leg Left: no movement 6b. Motor Leg Right: no gravity effort 7. Limb Ataxia: absent 8. Sensory: mild/moderate sensory loss 9. Best Language: no aphasia 10. Dysarthria: severe dysarthria 11. Extinction/Inattention: no abnormality Total Score: 19 Stroke Severity: Moderate to Severe Stroke ED Course Vital Signs 03/23/19 03/23/19 13:43 15:14 Temperature 99 F Pulse Rate 90 96 H Respiratory 20 16 Rate Blood Pressure 170/83 Blood Pressure 155/88 [Left] O2 Sat by Pulse 99 96 Oximetry - Lab Data Result diagrams: 03/23/19 14:01 03/23/19 14:01 Lab Results 03/23/19 03/23/19 03/23/19 Range/Units 13:41 13:41 14:01 WBC 8.7 (4.5-11.0) K/mm3 RBC 4.60 (3.65-5.03) M/mm3 Hgb 12.3 (10.1-14.3) gm/dl Hct 39.2 (30.3-42.9) % MCV 85 (79-97) fl MCH 27 L (28-32) pg MCHC 31 (30-34) % RDW 15.3 H (13.2-15.2) % Plt Count 262 (140-440) K/mm3 Lymph % (Auto) 33.2 (13.4-35.0) % [place] % (Auto) 7.3 (0.0-7.3) % Eos % (Auto) 1.4 (0.0-4.3) % Baso % (Auto) 1.2 (0.0-1.8) % Lymph # 2.9 (1.2-5.4) K/mm3 [place] # 0.6 (0.0-0.8) K/mm3 Eos # 0.1 (0.0-0.4) K/mm3 Baso # 0.1 (0.0-0.1) K/mm3 Seg Neutrophils % 56.9 (40.0-70.0) % Seg Neutrophils # 4.9 (1.8-7.7) K/mm3 PT (12.2-14.9) Sec. INR (0.87-1.13) APTT (24.2-36.6) Sec. Thrombin Time (15.1-19.6) Sec. Sodium (137-145) mmol/L Potassium (3.6-5.0) mmol/L Chloride (98-107) mmol/L Carbon Dioxide (22-30) mmol/L Anion Gap mmol/L BUN (7-17) mg/dL Creatinine (0.7-1.2) mg/dL Estimated GFR ml/min BUN/Creatinine Ratio % Glucose (65-100) mg/dL POC Glucose (70-105) Calcium (8.4-10.2) mg/dL Total Bilirubin (0.1-1.2) mg/dL AST (5-40) units/L ALT (7-56) units/L Alkaline Phosphatase (35-129) units/L Total Creatine Kinase (30-135) units/L CK-MB (CK-2) (0.0-4.0) ng/mL CK-MB (CK-2) Rel Index (0-4) Troponin T (0.00-0.029) ng/mL Total Protein (6.3-8.2) g/dL Albumin (3.9-5) g/dL Albumin/Globulin Ratio % TSH (0.270-4.200) mlU/mL Urine Color Yellow (Yellow) Urine Turbidity Hazy (Clear) Urine pH 5.0 (5.0-7.0) Ur Specific [place] 1.021 (1.003-1.030) Urine Protein 30 mg/dl (Negative) mg/dL Urine Glucose (UA) Neg (Negative) mg/dL Urine Ketones Neg (Negative) mg/dL Urine Blood Neg (Negative) Urine Nitrite Neg (Negative) Urine Bilirubin Neg (Negative) Urine Urobilinogen < 2.0 (<2.0) mg/dL Ur Leukocyte Esterase Neg (Negative) Urine WBC (Auto) 1.0 (0.0-6.0) /HPF Urine RBC (Auto) 4.0 (0.0-6.0) /HPF U Epithel Cells (Auto) 7.0 (0-13.0) /HPF Hyaline Casts 3 /LPF Urine Mucus Few /HPF Urine Opiates Screen Presumptive negative Urine Methadone Screen Presumptive negative Ur Barbiturates Screen Presumptive negative Ur Phencyclidine Scrn Presumptive negative Ur Amphetamines Screen Presumptive negative U Benzodiazepines Scrn Presumptive negative Urine Cocaine Screen Presumptive negative U Marijuana (THC) Screen Presumptive negative Drugs of Abuse Note Disclamer Plasma/Serum Alcohol (0-0.07) % 03/23/19 03/23/19 03/23/19 Range/Units 14:01 14:01 14:01 WBC (4.5-11.0) K/mm3 RBC (3.65-5.03) M/mm3 Hgb (10.1-14.3) gm/dl Hct (30.3-42.9) % MCV (79-97) fl MCH (28-32) pg MCHC (30-34) % RDW (13.2-15.2) % Plt Count (140-440) K/mm3 Lymph % (Auto) (13.4-35.0) % [place] % (Auto) (0.0-7.3) % Eos % (Auto) (0.0-4.3) % Baso % (Auto) (0.0-1.8) % Lymph # (1.2-5.4) K/mm3 [place] # (0.0-0.8) K/mm3 Eos # (0.0-0.4) K/mm3 Baso # (0.0-0.1) K/mm3 Seg Neutrophils % (40.0-70.0) % Seg Neutrophils # (1.8-7.7) K/mm3 PT 15.3 H (12.2-14.9) Sec. INR 1.19 H (0.87-1.13) APTT 27.0 (24.2-36.6) Sec. Thrombin Time 19.6 (15.1-19.6) Sec. Sodium 163 H* (137-145) mmol/L Potassium 4.5 (3.6-5.0) mmol/L Chloride 121.9 H (98-107) mmol/L Carbon Dioxide 23 (22-30) mmol/L Anion Gap 22 mmol/L BUN 55 H (7-17) mg/dL Creatinine 1.3 H (0.7-1.2) mg/dL Estimated GFR 47 ml/min BUN/Creatinine Ratio 42 % Glucose 132 H (65-100) mg/dL POC Glucose (70-105) Calcium 9.8 (8.4-10.2) mg/dL Total Bilirubin 0.30 (0.1-1.2) mg/dL AST 29 (5-40) units/L ALT 35 (7-56) units/L Alkaline Phosphatase 129 (35-129) units/L Total Creatine Kinase 73 (30-135) units/L CK-MB (CK-2) < 1.0 (0.0-4.0) ng/mL CK-MB (CK-2) Rel Index 1.3 (0-4) Troponin T 0.022 (0.00-0.029) ng/mL Total Protein 7.3 (6.3-8.2) g/dL Albumin 2.9 L (3.9-5) g/dL Albumin/Globulin Ratio 0.7 % TSH 0.552 (0.270-4.200) mlU/mL Urine Color (Yellow) Urine Turbidity (Clear) Urine pH (5.0-7.0) Ur Specific [place] (1.003-1.030) Urine Protein (Negative) mg/dL Urine Glucose (UA) (Negative) mg/dL Urine Ketones (Negative) mg/dL Urine Blood (Negative) Urine Nitrite (Negative) Urine Bilirubin (Negative) Urine Urobilinogen (<2.0) mg/dL Ur Leukocyte Esterase (Negative) Urine WBC (Auto) (0.0-6.0) /HPF Urine RBC (Auto) (0.0-6.0) /HPF U Epithel Cells (Auto) (0-13.0) /HPF Hyaline Casts /LPF Urine Mucus /HPF Urine Opiates Screen Urine Methadone Screen Ur Barbiturates Screen Ur Phencyclidine Scrn Ur Amphetamines Screen U Benzodiazepines Scrn Urine Cocaine Screen U Marijuana (THC) Screen Drugs of Abuse Note Plasma/Serum Alcohol (0-0.07) % 03/23/19 03/23/19 Range/Units 14:01 14:35 WBC (4.5-11.0) K/mm3 RBC (3.65-5.03) M/mm3 Hgb (10.1-14.3) gm/dl Hct (30.3-42.9) % MCV (79-97) fl MCH (28-32) pg MCHC (30-34) % RDW (13.2-15.2) % Plt Count (140-440) K/mm3 Lymph % (Auto) (13.4-35.0) % [place] % (Auto) (0.0-7.3) % Eos % (Auto) (0.0-4.3) % Baso % (Auto) (0.0-1.8) % Lymph # (1.2-5.4) K/mm3 [place] # (0.0-0.8) K/mm3 Eos # (0.0-0.4) K/mm3 Baso # (0.0-0.1) K/mm3 Seg Neutrophils % (40.0-70.0) % Seg Neutrophils # (1.8-7.7) K/mm3 PT (12.2-14.9) Sec. INR (0.87-1.13) APTT (24.2-36.6) Sec. Thrombin Time (15.1-19.6) Sec. Sodium (137-145) mmol/L Potassium (3.6-5.0) mmol/L Chloride (98-107) mmol/L Carbon Dioxide (22-30) mmol/L Anion Gap mmol/L BUN (7-17) mg/dL Creatinine (0.7-1.2) mg/dL Estimated GFR ml/min BUN/Creatinine Ratio % Glucose (65-100) mg/dL POC Glucose 128 H (70-105) Calcium (8.4-10.2) mg/dL Total Bilirubin (0.1-1.2) mg/dL AST (5-40) units/L ALT (7-56) units/L Alkaline Phosphatase (35-129) units/L Total Creatine Kinase (30-135) units/L CK-MB (CK-2) (0.0-4.0) ng/mL CK-MB (CK-2) Rel Index (0-4) Troponin T (0.00-0.029) ng/mL Total Protein (6.3-8.2) g/dL Albumin (3.9-5) g/dL Albumin/Globulin Ratio % TSH (0.270-4.200) mlU/mL Urine Color (Yellow) Urine Turbidity (Clear) Urine pH (5.0-7.0) Ur Specific [place] (1.003-1.030) Urine Protein (Negative) mg/dL Urine Glucose (UA) (Negative) mg/dL Urine Ketones (Negative) mg/dL Urine Blood (Negative) Urine Nitrite (Negative) Urine Bilirubin (Negative) Urine Urobilinogen (<2.0) mg/dL Ur Leukocyte Esterase (Negative) Urine WBC (Auto) (0.0-6.0) /HPF Urine RBC (Auto) (0.0-6.0) /HPF U Epithel Cells (Auto) (0-13.0) /HPF Hyaline Casts /LPF Urine Mucus /HPF Urine Opiates Screen Urine Methadone Screen Ur Barbiturates Screen Ur Phencyclidine Scrn Ur Amphetamines Screen U Benzodiazepines Scrn Urine Cocaine Screen U Marijuana (THC) Screen Drugs of Abuse Note Plasma/Serum Alcohol < 0.01 (0-0.07) % Critical care attestation.: If time is entered above; I have spent that time in minutes in the direct care of this critically ill patient, excluding procedure time. ED Disposition Clinical Impression: Confusion Disposition: [id number] OP ADMIT IP TO THIS HOSP Is pt being admited?: Yes Condition: Stable Referrals: PRIMARY CARE, [Primary Care Provider] - 3-5 Days
[2019-03-23] MEDS ORDERED: ONDANSETRON 4 MG/2 ML INJ IV PRN (17:44)
[2019-03-23 18:15] LABS: Creatinine,Urine 118.4 mg/dL (0.1-20.0)
[2019-03-23] MEDS: ACETAMINOPHEN 325 MG TAB PO PRN (22:51)
[2019-03-24 06:26] LABS: BUN/Creatinine Ratio 57; Blood Urea Nitrogen 57 mg/dL (7-17); Calcium 9.9 mg/dL (8.4-10.2); Hemolysis Index 18
[2019-03-24] MEDS: SODIUM CHLORIDE 0.45% 1000 ML 1,000 ML IV SCH (13:42)
--- NOTE | 2019-03-24 17:48 | Progress Note ---
Assessment and Plan Assessment and plan: -- Metabolic encephalopathy Current Visit: Yes Status: Acute Multifactorial , secondary to severe hypernatremia , advanced age History of old stroke , dementia IV fluid , neurochecks. treat the underlying cause. --Acute kidney injury; vasomotor nephropathy Avoid nephrotoxins, monitor renal function, gentle hydration -- Acute hypernatremia Current Visit: Yes Status: Acute Secondary to IV fluid resuscitation therapy, urine electrolytes, nephrology consulted, closely monitor electrolytes --Acute CVA (cerebral vascular accident) Current Visit: Yes Status: Acute Patient is from hospice services ,patient son All Cleveland elects for comfort care measures and to refrain from aggressive work-up or therapy at this time. Discussed different options of therapy therapy. Mr. Cleveland request supportive care only at this time Patient is currently on hosp[facility] with [facility] and is currently full code. Possible discharge back to hospice --Advance care planning Current Visit: Yes Status: Acute Disease education conducted, patient is full code at this time, and comfort care Case management discussing with the family about returning to hospice -- DVT prophylaxis Current Visit: No Status: Acute SCD to bilateral lower extremities while in bed, Monitor closely and adjust management as needed Plan of care reviewed with the patient's nurse History Interval history: Patient seen and examined at the bedside Patient's chart overnight events reviewed Admitted with altered level of consciousness and hyper natremia Patient is confused in mild distress Vital signs reviewed Hospitalist Physical - Constitutional Vitals: Temp Pulse Resp BP Pulse Ox 98.9 F 85 22 141/60 98 03/24/19 13:07 03/24/19 13:07 03/24/19 13:07 03/24/19 13:07 03/24/19 13:07 General appearance: Present: mild distress, well-nourished, obese - EENT Eyes: Present: PERRL, EOM intact - Neck Neck: Present: supple, normal ROM - Respiratory Respiratory effort: normal Respiratory: bilateral: diminished, negative: rales, rhonchi, wheezing - Cardiovascular Rhythm: regular Heart Sounds: Present: S1 & S2 - Extremities Extremities: no ischemia, No edema - Abdominal General gastrointestinal: soft, non-tender, non-distended, normal bowel sounds, other (PEG tube in place) - Integumentary Integumentary: Present: clear, warm - Psychiatric Psychiatric: other (Confused) - Neurologic Neurologic: moves all extremities Results - Labs CBC & Chem 7: 03/23/19 14:01 03/25/19 16:27 Labs: Laboratory Last Values WBC 8.7 K/mm3 (4.5-11.0) 03/23/19 14:01 RBC 4.60 M/mm3 (3.65-5.03) 03/23/19 14:01 Hgb 12.3 gm/dl (10.1-14.3) 03/23/19 14:01 Hct 39.2 % (30.3-42.9) 03/23/19 14:01 MCV 85 fl (79-97) 03/23/19 14:01 MCH 27 pg (28-32) L 03/23/19 14:01 MCHC 31 % (30-34) 03/23/19 14:01 RDW 15.3 % (13.2-15.2) H 03/23/19 14:01 Plt Count 262 K/mm3 (140-440) 03/23/19 14:01 Lymph % (Auto) 33.2 % (13.4-35.0) 03/23/19 14:01 Pope % (Auto) 7.3 % (0.0-7.3) 03/23/19 14:01 Eos % (Auto) 1.4 % (0.0-4.3) 03/23/19 14:01 Baso % (Auto) 1.2 % (0.0-1.8) 03/23/19 14:01 Lymph # 2.9 K/mm3 (1.2-5.4) 03/23/19 14:01 Pope # 0.6 K/mm3 (0.0-0.8) 03/23/19 14:01 Eos # 0.1 K/mm3 (0.0-0.4) 03/23/19 14:01 Baso # 0.1 K/mm3 (0.0-0.1) 03/23/19 14:01 Seg Neutrophils % 56.9 % (40.0-70.0) 03/23/19 14:01 Seg Neutrophils # 4.9 K/mm3 (1.8-7.7) 03/23/19 14:01 PT 15.3 Sec. (12.2-14.9) H 03/23/19 14:01 INR 1.19 (0.87-1.13) H 03/23/19 14:01 APTT 27.0 Sec. (24.2-36.6) 03/23/19 14:01 Thrombin Time 19.6 Sec. (15.1-19.6) 03/23/19 14:01 Sodium 160 mmol/L (137-145) H 03/24/19 05:44 Potassium 4.3 mmol/L (3.6-5.0) 03/24/19 05:44 Chloride 122.2 mmol/L (98-107) H 03/24/19 05:44 Carbon Dioxide 23 mmol/L (22-30) 03/24/19 05:44 Anion Gap 19 mmol/L 03/24/19 05:44 BUN 57 mg/dL (7-17) H 03/24/19 05:44 Creatinine 1.0 mg/dL (0.7-1.2) 03/24/19 05:44 Estimated GFR > 60 ml/min 03/24/19 05:44 BUN/Creatinine Ratio 57 % 03/24/19 05:44 Glucose 110 mg/dL (65-100) H 03/24/19 05:44 POC Glucose 128 (70-105) H 03/23/19 14:35 Calcium 9.9 mg/dL (8.4-10.2) 03/24/19 05:44 Total Bilirubin 0.30 mg/dL (0.1-1.2) 03/23/19 14:01 AST 29 units/L (5-40) 03/23/19 14:01 ALT 35 units/L (7-56) 03/23/19 14:01 Alkaline Phosphatase 129 units/L (35-129) 03/23/19 14:01 Total Creatine Kinase 73 units/L (30-135) 03/23/19 14:01 CK-MB (CK-2) < 1.0 ng/mL (0.0-4.0) 03/23/19 14:01 CK-MB (CK-2) Rel Index 1.3 (0-4) 03/23/19 14:01 Troponin T 0.022 ng/mL (0.00-0.029) 03/23/19 14:01 Total Protein 7.3 g/dL (6.3-8.2) 03/23/19 14:01 Albumin 2.9 g/dL (3.9-5) L 03/23/19 14:01 Albumin/Globulin Ratio 0.7 % 03/23/19 14:01 TSH 0.552 mlU/mL (0.270-4.200) 03/23/19 14:01 Urine Color Yellow (Yellow) 03/23/19 13:41 Urine Turbidity Hazy (Clear) 03/23/19 13:41 Urine pH 5.0 (5.0-7.0) 03/23/19 13:41 Ur Specific [place] 1.021 (1.003-1.030) 03/23/19 13:41 Urine Protein 30 mg/dl mg/dL (Negative) 03/23/19 13:41 Urine Glucose (UA) Neg mg/dL (Negative) 03/23/19 13:41 Urine Ketones Neg mg/dL (Negative) 03/23/19 13:41 Urine Blood Neg (Negative) 03/23/19 13:41 Urine Nitrite Neg (Negative) 03/23/19 13:41 Urine Bilirubin Neg (Negative) 03/23/19 13:41 Urine Urobilinogen < 2.0 mg/dL (<2.0) 03/23/19 13:41 Ur Leukocyte Esterase Neg (Negative) 03/23/19 13:41 Urine WBC (Auto) 1.0 /HPF (0.0-6.0) 03/23/19 13:41 Urine RBC (Auto) 4.0 /HPF (0.0-6.0) 03/23/19 13:41 U Epithel Cells (Auto) 7.0 /HPF (0-13.0) 03/23/19 13:41 Hyaline Casts 3 /LPF 03/23/19 13:41 Urine Mucus Few /HPF 03/23/19 13:41 Urine Creatinine 118.4 mg/dL (0.1-20.0) H 03/23/19 17:54 Urine Sodium 19 mmol/L 03/23/19 17:54 Urine Opiates Screen Presumptive negative 03/23/19 13:41 Urine Methadone Screen Presumptive negative 03/23/19 13:41 Ur Barbiturates Screen Presumptive negative 03/23/19 13:41 Ur Phencyclidine Scrn Presumptive negative 03/23/19 13:41 Ur Amphetamines Screen Presumptive negative 03/23/19 13:41 U Benzodiazepines Scrn Presumptive negative 03/23/19 13:41 Urine Cocaine Screen Presumptive negative 03/23/19 13:41 U Marijuana (THC) Screen Presumptive negative 03/23/19 13:41 Drugs of Abuse Note Disclamer 03/23/19 13:41 Plasma/Serum Alcohol < 0.01 % (0-0.07) 03/23/19 14:01 Active Medications - Current Medications Current Medications: Generic Name Dose Route Start Last Admin Trade Name Freq PRN Reason Stop Dose Admin Acetaminophen 650 mg 03/23/19 17:44 03/23/19 22:51 Tylenol PO 650 mg Q4H PRN Administration Pain MILD(1-3)/Fever >100.5/LEWIS Sodium Chloride 1,000 mls @ 100 mls/hr 03/23/19 18:00 03/24/19 13:42 Nacl 0.45% 1000 Ml IV 100 mls/hr DIRECT CAMILA Administration Ondansetron HCl 4 mg 03/23/19 17:44 Zofran IV Q8H PRN Nausea And Vomiting Sodium Chloride 10 ml 03/23/19 22:00 03/24/19 09:59 Sodium Chloride Flush Syringe 10 Ml IV 10 ml BID CAMILA Administration Sodium Chloride 10 ml 03/23/19 17:44 Sodium Chloride Flush Syringe 10 Ml IV PRN PRN LINE FLUSH Nutrition/Malnutrition Assess - Dietary Evaluation Nutrition/Malnutrition Findings: Nutrition Notes Start: 03/24/19 08:42 Freq: Status: Active Protocol: Document 03/24/19 08:42 CC (Rec: 03/24/19 08:53 CC [id number]) Co-Sign 03/24/19 08:42 LP Nutrition Notes Need for Assessment generated from: paying teller,MST Initial or Follow up Assessment Current Diagnosis Hypertension,Stroke Other Pertinent Diagnosis PEG, wounds Current Diet NPO Labs/Tests Na 160 Cl 122.2 BUN 57 Pertinent Medications Reviewed Height 5 ft 10 in Weight 110 kg [place] Body Weight (kg) 68.18 BMI 34.7 Weight Status Morbidly Obese Subjective/Other Information Screen for MST, difficulty chewing, skin risk assesment < 18 and pt recieving TF. Pt currently with PEG tube. Pt unable to give nutrition information. Obtained pt wt using bed scale at 242.6lbs ( 110kg). Observed mild muscle wasting at collarbone. Burn Absent Trauma Absent GI Symptoms None Difficulty In Chewing Food Allergy No Current % PO Negligible Minimum of two criteria No Muscle Mass Mild Depletion (non-severe) #2 Nutrition Diagnosis Increased nutrient needs ( specify in comment below) Comments: protein Etiology Wound healing As Evidenced by Signs and Symptoms sacral wound #1 Nutrition Diagnosis Inadequate oral intake Etiology CVA As Evidenced by Signs and Symptoms Pt with PEG Is patient on ventilator? No Is Patient Ambulatory and/or Out of Bed No REE-([facility]-confined to bed) 1968.948 Kcal/Kg value to use for calculation 15 Approximate Energy Requirements Using 1650 kcal/Kg Calculation Used for Recommendations Kcal/kg Additional Notes Protein: 111-133g/day (1.25-1. 5g/kg AdBW 89.1kg) Fluid: 1ml/kcal Nutrition Intervention Change Diet Order: TF Nutrition Support: Promote at 65ml/hr Flush at 150ml/hr q4hr for hypernatremia, once resolved flush at 50ml/hr q4hr Kcal 1,560 Protein (gm) 97 Fluid (mL) 1,308 Goal #1 Meet at leat 75% of energy and protein needs when TF diet ordered Anticipated Discharge Needs: TF Follow-Up By: 03/25/19 Additional Comments F/U for TF consult
--- NOTE | 2019-03-24 18:30 | Consultation ---
History of Present Illness - Reason for Consult Consult date: 03/24/19 hypernatremia - History of Present Illness This is an 83 year old female patient who is confused and unable to provide medical history or answer questions. Son is not present at the bedside at time of consultation so HPI is derived from ED notes. Her pmh is significant for hypertension, hyperlipidemia, previous subdural hematoma, and CVA with residual left-sided defects. Patient had a stroke in September 2017 and another stroke in January 2019. She has been on home hospice care with [facility]. She presented to the ED with patient son complaining of increased confusion, concomitant nonsensical speech for the past 24 hours. In addition, she has had right-sided gaze and has been staring off. EMS transported the patient after finding her in distress. CT of head revealed evidence of subacute right MCA stroke but was determined to not be a candidate for TPA. During initial admission, patient son revoked hospice care in favor of supportive care. No reports of fever, chills, chest pain, shortness of breath, syncope, nausea, vomiting, or diarrhea. At time of admission, labs significant for serum sodium 163, creatinine 1.3, and albumin 2.9. At time of consult, labs significant for serum sodium 160, and creatinine has improved to 1.0. Nephrology was consulted for further evaluation and treatment of hypernatremia. Past History Past Medical History: hypertension, hyperlipidemia, other (See HPI) Past Surgical History: hysterectomy, total knee replacement Social history: , lives with family. denies: smoking, alcohol abuse, prescription drug abuse Family history: hypertension Medications and Allergies Allergies Allergy/AdvReac Type Severity Reaction Status Date / Time No Known Allergies Allergy Verified 10/01/17 07:10 Home Medications Medication Instructions Recorded Confirmed Last Taken Type Acetaminophen [Acetaminophen TAB] 650 mg PO Q4H PRN #10 tablet 09/21/17 03/23/19 Unknown Rx Amlodipine Besylate [Norvasc] 5 mg PO DAILY #30 tablet 09/21/17 03/23/19 Unknown Rx Aspirin [Aspirin BABY CHEW TAB] 81 mg PO QDAY #30 tab.chew 09/21/17 03/23/19 Unknown Rx AtorvaSTATin [Lipitor] 40 mg PO QHS #30 tablet 09/21/17 03/23/19 Unknown Rx Lasix TAB 40 mg PO DAILY 03/23/19 03/23/19 Unknown History Potassium Chloride 15 mg PO DAILY 03/23/19 03/23/19 Unknown History Active Meds: Active Medications Acetaminophen (Tylenol) 650 mg PO Q4H PRN PRN Reason: Pain MILD(1-3)/Fever >100.5/LEWIS Last Admin: 03/23/19 22:51 Dose: 650 mg Documented by: Sodium Chloride (Nacl 0.45% 1000 Ml) 1,000 mls @ 100 mls/hr IV DIRECT [facility] Last Admin: 03/24/19 13:42 Dose: 100 mls/hr Documented by: Ondansetron HCl (Zofran) 4 mg IV Q8H PRN PRN Reason: Nausea And Vomiting Sodium Chloride (Sodium Chloride Flush Syringe 10 Ml) 10 ml IV BID [facility] Last Admin: 03/24/19 09:59 Dose: 10 ml Documented by: Sodium Chloride (Sodium Chloride Flush Syringe 10 Ml) 10 ml IV PRN PRN PRN Reason: LINE FLUSH Review of Systems ROS unobtainable: due to mental status Exam - Vital Signs Vital signs: Vital Signs Temp Pulse Resp BP Pulse Ox 99 F 90 20 170/83 99 03/23/19 13:43 03/23/19 13:43 03/23/19 13:43 03/23/19 13:43 03/23/19 13:43 - General Appearance General appearance: well-developed, well-nourished, appears stated age, obese EENT: ATNC, PERRL, mucous membranes dry Neck: Present: neck supple, trachea midline Respiratory: Decreased Breath Sounds (bilateral bases) Heart: regular, normal heart rate, S1S2, no murmurs Gastrointestinal: Present: normal, normoactive bowel sounds, other (PEG tube) Integumentary: no rash, warm and dry, other (sacral ulcer/abrasion to left buttock) Neurologic: confused, other (right sided gaze) Musculoskeletal: Present: other (generalized weakness, left side deficit) Psychiatric: cooperative, other (confused) Results - Lab Results 03/23/19 14:01 03/24/19 05:44 Most recent lab results Calcium 9.9 mg/dL (8.4-10.2) 03/24/19 05:44 Urine Creatinine 118.4 mg/dL (0.1-20.0) H 03/23/19 17:54 Urine Sodium 19 mmol/L 02/13/20 17:54 Assessment and Plan 1. Hypernatremia: Likely secondary to dehydration. Serum sodium trending down, now 160 from 163. Continue IV fluids. Monitor lytes. 2. Metabolic encephalopathy: H/o stroke and dementia. 3. Acute cerebral vascular accident: Son refraining from aggressive treatment or work-up at this time. Son requesting supportive care with possible d/c back home hospice. 4. Hypertension: Monitor BP.
[2019-03-24] MEDS ORDERED: SODIUM BICARBONATE 325 MG TAB FEEDTUBE PRN (19:17)
[2019-03-24] MEDS ORDERED: SIMPLE SYRUP 15 ML FEEDTUBE PRN ×2 (19:17)
[2019-03-24] MEDS ORDERED: LIPASE 10,500/PROTEASE 25,000/AMYLASE 43,750 (UNITS) DR CAP FEEDTUBE PRN (19:17)
[2019-03-25] MEDS: SODIUM CHLORIDE 0.45% 1000 ML 1,000 ML IV SCH (04:43)
[2019-03-25 06:41] LABS: BUN/Creatinine Ratio 54; Blood Urea Nitrogen 49 mg/dL (7-17); Calcium 10.1 mg/dL (8.4-10.2); Hemolysis Index 33
[2019-03-25] MEDS ORDERED: SODIUM BICARBONATE 325 MG TAB FEEDTUBE PRN (08:59)
[2019-03-25] MEDS ORDERED: LIPASE 10,500/PROTEASE 25,000/AMYLASE 43,750 (UNITS) DR CAP FEEDTUBE PRN (08:59)
[2019-03-25] MEDS ORDERED: SIMPLE SYRUP 15 ML FEEDTUBE PRN ×2 (08:59)
--- NOTE | 2019-03-25 09:00 | Progress Note ---
Assessment and Plan 1. Hypernatremia: Likely secondary to dehydration. Serum sodium 161 from 160. IV fluids switched to D5W at 75 cc/hr. Will recheck serum sodium at 1600 and BMP in am. Monitor lytes. 2. Metabolic encephalopathy: H/o stroke and dementia. 3. Acute cerebral vascular accident: Son refraining from aggressive treatment or work-up at this time. Son requesting supportive care with possible d/c back home hospice. 4. Hypertension: Monitor BP. Subjective Date of service: 03/25/19 Interval history: Patient was seen and examined at the bedside. No family present in room. No acute events overnight. Objective - Exam Narrative Exam: General appearance: well-developed, well-nourished, appears stated age, obese EENT: ATNC, PERRL, mucous membranes dry Neck: Present: neck supple, trachea midline Respiratory: Decreased Breath Sounds (bilateral bases) Heart: regular, normal heart rate, S1S2, no murmurs Gastrointestinal: Present: normal, normoactive bowel sounds, other (PEG tube) Integumentary: no rash, warm and dry, other (sacral ulcer/abrasion to left buttock) Neurologic: confused, other (right sided gaze) Musculoskeletal: Present: other (generalized weakness, left side deficit) Psychiatric: cooperative, other (confused) - Vital Signs Vital signs: Vital Signs - 12hr 03/24/19 03/25/19 03/25/19 21:35 03:21 07:49 Temperature 98.1 F 98.5 F Pulse Rate 78 80 Respiratory 20 20 Rate Blood Pressure 124/52 127/47 O2 Sat by Pulse 100 96 100 Oximetry - Lab 03/23/19 14:01 03/25/19 04:59 Most recent lab results Calcium 10.1 mg/dL (8.4-10.2) 03/25/19 04:59 Phosphorus 3.10 mg/dL (2.5-4.5) 03/25/19 04:59 Magnesium 2.80 mg/dL (1.7-2.3) H 03/25/19 04:59 Urine Creatinine 118.4 mg/dL (0.1-20.0) H 03/23/19 17:54 Urine Sodium 19 mmol/L 03/23/19 17:54 Medications & Allergies - Medications Allergies/Adverse Reactions: Allergies No Known Allergies Allergy (Verified 10/01/17 07:10) Home Medications: Home Medications Medication Instructions Recorded Confirmed Last Taken Type Acetaminophen [Acetaminophen TAB] 650 mg PO Q4H PRN #10 tablet 09/21/17 03/23/19 Unknown Rx Amlodipine Besylate [Norvasc] 5 mg PO DAILY #30 tablet 09/21/17 03/23/19 Unknown Rx Aspirin [Aspirin BABY CHEW TAB] 81 mg PO QDAY #30 tab.chew 09/21/17 03/23/19 Un known Rx AtorvaSTATin [Lipitor] 40 mg PO QHS #30 tablet 09/21/17 03/23/19 Unknown Rx Lasix TAB 40 mg PO DAILY 03/23/19 03/23/19 Unknown History Potassium Chloride 15 mg PO DAILY 03/23/19 03/23/19 Unknown History Active Medications: Generic Name Dose Route Start Last Admin Trade Name Freq PRN Reason Stop Dose Admin Acetaminophen 650 mg 03/23/19 17:44 03/23/19 22:51 Tylenol PO 650 mg Q4H PRN Administration Pain MILD(1-3)/Fever >100.5/LEWIS Lipase/Protease/Amylase 1 each 03/24/19 19:[address] 10,500 Unit FEEDTUBE PRN PRN For Clogged Feeding Tube Sodium Chloride 1,000 mls @ 100 mls/hr 03/23/19 18:00 03/25/19 04:43 Nacl 0.45% 1000 Ml IV 100 mls/hr DIRECT CAMILA Administration Ondansetron HCl 4 mg 03/23/19 17:44 Zofran IV Q8H PRN Nausea And Vomiting Simple Syrup 15 ml 03/24/19 19:17 Simple Syrup FEEDTUBE PRN PRN Hypoglycemia Simple Syrup 30 ml 03/24/19 19:17 Simple Syrup FEEDTUBE PRN PRN Hypoglycemia Sodium Bicarbonate 325 mg 03/24/19 19:17 Sodium Bicarbonate FEEDTUBE PRN PRN For Clogged Feeding Tube Sodium Chloride 10 ml 03/23/19 22:00 03/24/19 21:34 Sodium Chloride Flush Syringe 10 Ml IV 10 ml BID CAMILA Administration Sodium Chloride 10 ml 03/23/19 17:44 Sodium Chloride Flush Syringe 10 Ml IV PRN PRN LINE FLUSH
[2019-03-25] MEDS: DEXTROSE 5% IN WATER 1,000 ML IV SCH (11:17)
--- NOTE | 2019-03-25 17:47 | Progress Note ---
Assessment and Plan Assessment and plan: Severe hypernatremia; mild improvement Improved from 161 -156, increased free water via PEG tube And IV fluids, slow correction of sodium -- Metabolic encephalopathy Current Visit: Yes Status: Acute Multifactorial , secondary to severe hypernatremia , advanced age History of old stroke , dementia IV fluid , neurochecks. treat the underlying cause -- Acute hypernatremia Current Visit: Yes Status: Acute Secondary to IV fluid resuscitation therapy, urine electrolytes, nephrology consulted, closely monitor electrolytes. --Severe protein calorie malnutrition; hypoalbuminemia nutrition supplements, nutrition consult. --Dysphagia; status post PEG; PEG feeds per protocol, PEG care --Acute kidney injury; vasomotor nephropathy/ATN Gentle hydration avoid nephrotoxins, monitor renal function --Acute CVA (cerebral vascular accident) Current Visit: Yes Status: Acute Patient is from hospice services ,patient son All Cleveland elects for comfort care measures and to refrain from aggressive work-up or therapy at this time. Discussed different options of therapy therapy. Mr. [place] request supportive care only at this time Patient is currently on hospice services with [facility] and is currently full code. Possible discharge back to hospice --Advance care planning Current Visit: Yes Status: Acute Disease education conducted, patient is full code at this time, and comfort care Case management discussing with the family about returning to hospice -- DVT prophylaxis Current Visit: No Status: Acute SCD to bilateral lower extremities while in bed, Monitor closely and adjust management as needed Plan of care reviewed with the patient's nurse DC planning per case management Disposition; closely monitor sodium levels, mental status Renal function, possible discharge in 1 to 2 days if stable History Interval history: Patient seen and examined at the bedside Last 24 hours events and medication list noted Patient remains encephalopathic, in mild distress Noncommunicative Patient's sodium remains high between 156 and 160 Mild improvement with IV fluids and free water Vital signs noted Hospitalist Physical - Constitutional Vitals: Temp Pulse Resp BP Pulse Ox 98.9 F 69 20 120/46 98 03/25/19 12:45 03/25/19 12:45 03/25/19 12:45 03/25/19 12:45 03/25/19 12:45 General appearance: Present: mild distress, well-nourished, obese, other (Noncommunicative) - EENT Eyes: Present: PERRL, EOM intact - Neck Neck: Present: supple, normal ROM - Respiratory Respiratory effort: normal Respiratory: bilateral: diminished, rhonchi, negative: rales, wheezing - Cardiovascular Rhythm: regular Heart Sounds: Present: S1 & S2 - Extremities Extremities: no ischemia Extremity abnormal: edema - Abdominal General gastrointestinal: soft, non-tender, non-distended, normal bowel sounds - Integumentary Integumentary: Present: clear, warm - Psychiatric Psychiatric: other (Confused) - Neurologic Neurologic: other (Residual weakness) Results - Labs CBC & Chem 7: 03/23/19 14:01 03/25/19 16:27 Labs: Laboratory Last Values WBC 8.7 K/mm3 (4.5-11.0) 03/23/19 14: RBC 4.60 M/mm3 (3.65-5.03) 03/23/19 14:01 Hgb 12.3 gm/dl (10.1-14.3) 03/23/19 14:01 Hct 39.2 % (30.3-42.9) 03/23/19 14:01 MCV 85 fl (79-97) 03/23/19 14:01 MCH 27 pg (28-32) L 03/23/19 14:01 MCHC 31 % (30-34) 03/23/19 14:01 RDW 15.3 % (13.2-15.2) H 03/23/19 14:01 Plt Count 262 K/mm3 (140-440) 03/23/19 14:01 Lymph % (Auto) 33.2 % (13.4-35.0) 03/23/19 14:01 [place] % (Auto) 7.3 % (0.0-7.3) 03/23/19 14:01 Eos % (Auto) 1.4 % (0.0-4.3) 03/23/19 14:01 Baso % (Auto) 1.2 % (0.0-1.8) 03/23/19 14:01 Lymph # 2.9 K/mm3 (1.2-5.4) 03/23/19 14:01 [place] # 0.6 K/mm3 (0.0-0.8) 03/23/19 14:01 Eos # 0.1 K/mm3 (0.0-0.4) 03/23/19 14:01 Baso # 0.1 K/mm3 (0.0-0.1) 03/23/19 14:01 Seg Neutrophils % 56.9 % (40.0-70.0) 03/23/19 14:01 Seg Neutrophils # 4.9 K/mm3 (1.8-7.7) 03/23/19 14:01 PT 15.3 Sec. (12.2-14.9) H 03/23/19 14:01 INR 1.19 (0.87-1.13) H 03/23/19 14:01 APTT 27.0 Sec. (24.2-36.6) 03/23/19 14:01 Thrombin Time 19.6 Sec. (15.1-19.6) 03/23/19 14:01 Sodium 156 mmol/L (137-145) H 03/25/19 16:27 Potassium 4.4 mmol/L (3.6-5.0) 03/25/19 04:59 Chloride 123.0 mmol/L (98-107) H 03/25/19 04:59 Carbon Dioxide 21 mmol/L (22-30) L 03/25/19 04:59 Anion Gap 21 mmol/L 03/25/19 04:59 BUN 49 mg/dL (7-17) H 03/25/19 04:59 Creatinine 0.9 mg/dL (0.7-1.2) 03/25/19 04:59 Estimated GFR > 60 ml/min 03/25/19 04:59 BUN/Creatinine Ratio 54 % 03/25/19 04:59 Glucose 99 mg/dL (65-100) 03/25/19 04:59 POC Glucose 122 (70-105) H 03/25/19 11:32 Calcium 10.1 mg/dL (8.4-10.2) 03/25/19 04:59 Phosphorus 3.10 mg/dL (2.5-4.5) 03/25/19 04:59 Magnesium 2.80 mg/dL (1.7-2.3) H 03/25/19 04:59 Total Bilirubin 0.30 mg/dL (0.1-1.2) 03/23/19 14:01 AST 29 units/L (5-40) 03/23/19 14:01 ALT 35 units/L (7-56) 03/23/19 14:01 Alkaline Phosphatase 129 units/L (35-129) 03/23/19 14:01 Total Creatine Kinase 73 units/L (30-135) 03/23/19 14:01 CK-MB (CK-2) < 1.0 ng/mL (0.0-4.0) 03/23/19 14:01 CK-MB (CK-2) Rel Index 1.3 (0-4) 03/23/19 14:01 Troponin T 0.022 ng/mL (0.00-0.029) 03/23/19 14:01 Total Protein 7.3 g/dL (6.3-8.2) 03/23/19 14:01 Albumin 2.9 g/dL (3.9-5) L 03/23/19 14:01 Albumin/Globulin Ratio 0.7 % 03/23/19 14:01 TSH 0.552 mlU/mL (0.270-4.200) 03/23/19 14:01 Urine Color Yellow (Yellow) 03/23/19 13:41 Urine Turbidity Hazy (Clear) 03/23/19 13:41 Urine pH 5.0 (5.0-7.0) 03/23/19 13:41 Ur Specific [place] 1.021 (1.003-1.030) 03/23/19 13:41 Urine Protein 30 mg/dl mg/dL (Negative) 03/23/19 13:41 Urine Glucose (UA) Neg mg/dL (Negative) 03/23/19 13:41 Urine Ketones Neg mg/dL (Negative) 03/23/19 13:41 Urine Blood Neg (Negative) 03/23/19 13:41 Urine Nitrite Neg (Negative) 03/23/19 13:41 Urine Bilirubin Neg (Negative) 03/23/19 13:41 Urine Urobilinogen < 2.0 mg/dL (<2.0) 03/23/19 13:41 Ur Leukocyte Esterase Neg (Negative) 03/23/19 13:41 Urine WBC (Auto) 1.0 /HPF (0.0-6.0) 03/23/19 13:41 Urine RBC (Auto) 4.0 /HPF (0.0-6.0) 03/23/19 13:41 U Epithel Cells (Auto) 7.0 /HPF (0-13.0) 03/23/19 13:41 Hyaline Casts 3 /LPF 03/23/19 13:41 Urine Mucus Few /HPF 03/23/19 13:41 Urine Creatinine 118.4 mg/dL (0.1-20.0) H 03/23/19 17:54 Urine Sodium 19 mmol/L 03/23/19 17:54 Urine Opiates Screen Presumptive negative 03/23/19 13:41 Urine Methadone Screen Presumptive negative 03/23/19 13:41 Ur Barbiturates Screen Presumptive negative 03/23/19 13:41 Ur Phencyclidine Scrn Presumptive negative 03/23/19 13:41 Ur Amphetamines Screen Presumptive negative 03/23/19 13:41 U Benzodiazepines Scrn Presumptive negative 03/23/19 13:41 Urine Cocaine Screen Presumptive negative 03/23/19 13:41 U Marijuana (THC) Screen Presumptive negative 03/23/19 13:41 Drugs of Abuse Note Disclamer 03/23/19 13:41 Plasma/Serum Alcohol < 0.01 % (0-0.07) 03/23/19 14:01 Active Medications - Current Medications Current Medications: Generic Name Dose Route Start Last Admin Trade Name Freq PRN Reason Stop Dose Admin Acetaminophen 650 mg 03/23/19 17:44 03/23/19 22:51 Tylenol PO 650 mg Q4H PRN Administration Pain MILD(1-3)/Fever >100.5/LEWIS Lipase/Protease/Amylase 1 each 03/24/19 19:17 Pancreazplacido Huggins 10,500 Unit FEEDTUBE PRN PRN For Clogged Feeding Tube Sodium Chloride 1,000 mls @ 100 mls/hr 03/23/19 18:00 03/25/19 04:43 Nacl 0.45% 1000 Ml IV 100 mls/hr DIRECT CAMILA Administration Dextrose 1,000 mls @ 75 mls/hr 03/25/19 11:00 03/25/19 11:17 D5w IV 75 mls/hr DIRECT CAMILA Administration Ondansetron HCl 4 mg 03/23/19 17:44 Zofran IV Q8H PRN Nausea And Vomiting Simple Syrup 15 ml 03/24/19 19:17 Simple Syrup FEEDTUBE PRN PRN Hypoglycemia Simple Syrup 30 ml 03/24/19 19:17 Simple Syrup FEEDTUBE PRN PRN Hypoglycemia Sodium Bicarbonate 325 mg 03/24/19 19:17 Sodium Bicarbonate FEEDTUBE PRN PRN For Clogged Feeding Tube Sodium Chloride 10 ml 03/23/19 22:00 03/25/19 09:45 Sodium Chloride Flush Syringe 10 Ml IV 10 ml BID CAMILA Administration Sodium Chloride 10 ml 03/23/19 17:44 Sodium Chloride Flush Syringe 10 Ml IV PRN PRN LINE FLUSH Nutrition/Malnutrition Assess - Dietary Evaluation Nutrition/Malnutrition Findings: Nutrition Notes Start: 03/24/19 08:42 Freq: Status: Active Protocol: Document 03/25/19 09:09 CHI (Rec: 03/25/19 09:13 [id number]) Nutrition Notes Need for Assessment generated from: MD Order Initial or Follow up Brief Note Current Diagnosis Hypertension,Stroke Other Pertinent Diagnosis PEG, wounds Current Diet NPO Labs/Tests Na: 161 BUN: 49 Pertinent Medications 1/2 NS at 100 ml/hr [place] Body Weight (kg) 0 Subjective/Other Information MD consult for write/manage TF GI Symptoms None Difficulty In Chewing Food Allergy No Current % PO Negligible Minimum of two criteria No Muscle Mass Mild Depletion (non-severe) #2 Nutrition Diagnosis Increased nutrient needs ( specify in comment below) Diagnosis Progress(for reassessment Continues documentation) #1 Nutrition Diagnosis Inadequate oral intake Diagnosis Progress(for reassessment Continues documentation) Is patient on ventilator? No Is Patient Ambulatory and/or Out of Bed No REE-([place]-confined to bed) 0 Kcal/Kg value to use for calculation 15 Calculation Used for Recommendations Kcal/kg Additional Notes Protein: 111-133g/day (1.25-1. 5g/kg AdBW 89.1kg) Fluid: 1ml/kcal Nutrition Intervention Change Diet Order: TF Nutrition Support: Promote at 65ml/hr Flush at 150ml/hr q4hr for hypernatremia, once resolved flush at 50ml/hr q4hr Kcal 1,560 Protein (gm) 97 Fluid (mL) 1,308 Goal #1 TF initiation/tolerance Anticipated Discharge Needs: TF Follow-Up By: 03/27/19 Additional Comments F/u for TF initiation/ tolerance
[2019-03-26] MEDS: DEXTROSE 5% IN WATER 1,000 ML IV SCH ×2 (00:25→20:20)
[2019-03-26 05:27] LABS: BUN/Creatinine Ratio 55; Blood Urea Nitrogen 44 mg/dL (7-17); Calcium 9.7 mg/dL (8.4-10.2); Hemolysis Index 12
--- NOTE | 2019-03-26 10:38 | Progress Note ---
Assessment and Plan 1. Hypernatremia: Likely secondary to dehydration. Serum sodium 155 from 156. Increase D5 IV fluids to 100 cc/hr. Will recheck serum sodium at 1600 and BMP in am. Monitor lytes. 2. Metabolic encephalopathy: H/o stroke and dementia. 3. Acute cerebral vascular accident: Son refraining from aggressive treatment or work-up at this time. Son requesting supportive care with possible d/c back home hospice. 4. Hypertension: Monitor BP. 5. Poor PO intake: Tolerating tube feeds well through PEG tube. Subjective Date of service: 03/26/19 Interval history: Patient was seen and examined at the bedside. No family present in room. No acute events overnight. Objective - Exam Narrative Exam: General appearance: well-developed, well-nourished, appears stated age, obese EENT: ATNC, PERRL, mucous membranes dry Neck: Present: neck supple, trachea midline Respiratory: Decreased Breath Sounds (bilateral bases) Heart: regular, normal heart rate, S1S2, no murmurs Gastrointestinal: Present: normal, normoactive bowel sounds, other (PEG tube) Integumentary: no rash, warm and dry, other (sacral ulcer/abrasion to left buttock) Neurologic: confused, other (right sided gaze) Musculoskeletal: Present: other (generalized weakness, left side deficit) Psychiatric: cooperative, other (confused) - Vital Signs Vital signs: Vital Signs - 12hr 03/26/19 03/26/19 03/26/19 02:31 07:45 08:36 Temperature 98.3 F 97.5 F L Pulse Rate 72 64 Respiratory 20 20 Rate Blood Pressure 131/45 130/52 O2 Sat by Pulse 97 99 99 Oximetry - Lab 03/23/19 14:01 03/26/19 04:23 Most recent lab results Calcium 9.7 mg/dL (8.4-10.2) 03/26/19 04:23 Phosphorus 3.10 mg/dL (2.5-4.5) 03/25/19 04:59 Magnesium 2.80 mg/dL (1.7-2.3) H 03/25/19 04:59 Urine Creatinine 118.4 mg/dL (0.1-20.0) H 03/23/19 17:54 Urine Sodium 19 mmol/L 03/23/19 17:54 Medications & Allergies - Medications Allergies/Adverse Reactions: Allergies No Known Allergies Allergy (Verified 10/01/17 07:10) Home Medications: Home Medications Medication Instructions Recorded Confirmed Last Taken Type Acetaminophen [Acetaminophen TAB] 650 mg PO Q4H PRN #10 tablet 09/21/17 03/23/19 Unknown Rx Amlodipine Besylate [Norvasc] 5 mg PO DAILY #30 tablet 09/21/17 03/23/19 Unknown Rx Aspirin [Aspirin BABY CHEW TAB] 81 mg PO QDAY #30 tab.chew 09/21/17 03/23/19 Unknown Rx AtorvaSTATin [Lipitor] 40 mg PO QHS #30 tablet 09/21/17 03/23/19 Unknown Rx Lasix TAB 40 mg PO DAILY 03/23/19 03/23/19 Unknown History Potassium Chloride 15 mg PO DAILY 03/23/19 03/23/19 Unknown History Active Medications: Generic Name Dose Route Start Last Admin Trade Name Freq PRN Reason Stop Dose Admin Acetaminophen 650 mg 03/23/19 17:44 03/23/19 22:51 Tylenol PO 650 mg Q4H PRN Administration Pain MILD(1-3)/Fever >100.5/LEWIS Lipase/Protease/Amylase 1 each 03/24/19 19:17 Pancreaze 10,500 Unit FEEDTUBE PRN PRN For Clogged Feeding Tube Sodium Chloride 1,000 mls @ 100 mls/hr 03/23/19 18:00 03/25/19 04:43 Nacl 0.45% 1000 Ml IV 100 mls/hr DIRECT CAMILA Administration Dextrose 1,000 mls @ 100 mls/hr 03/25/19 11:00 03/26/19 00:25 D5w IV 75 mls/hr DIRECT CAMILA Administration Ondansetron HCl 4 mg 03/23/19 17:44 Zofran IV Q8H PRN Nausea And Vomiting Simple Syrup 15 ml 03/24/19 19:17 Simple Syrup FEEDTUBE PRN PRN Hypoglycemia Simple Syrup 30 ml 03/24/19 19:17 Simple Syrup FEEDTUBE PRN PRN Hypoglycemia Sodium Bicarbonate 325 mg 03/24/19 19:17 Sodium Bicarbonate FEEDTUBE PRN PRN For Clogged Feeding Tube Sodium Chloride 10 ml 03/23/19 22:00 03/26/19 09:36 Sodium Chloride Flush Syringe 10 Ml IV 10 ml BID CAMILA Administration Sodium Chloride 10 ml 03/23/19 17:44 Sodium Chloride Flush Syringe 10 Ml IV PRN PRN LINE FLUSH
[2019-03-26] MEDS: ACETAMINOPHEN 325 MG TAB PO PRN (11:00)
--- NOTE | 2019-03-26 15:23 | Progress Note ---
Assessment and Plan Assessment and plan: Patient had an episode of chest pain this morning For set of cardiac enzymes negative EKG no acute ST-T changes Probably musculoskeletal Pain medications Closely monitor Severe hypernatremia; mild improvement Improved from 161 -156, increased free water via PEG tube And IV fluids, slow correction of sodium -- Metabolic encephalopathy Current Visit: Yes Status: Acute Multifactorial , secondary to severe hypernatremia , advanced age History of old stroke , dementia IV fluid , neurochecks. treat the underlying cause -- Acute hypernatremia Current Visit: Yes Status: Acute Secondary to IV fluid resuscitation therapy, urine electrolytes, nephrology consulted, closely monitor electrolytes. --Severe protein calorie malnutrition; hypoalbuminemia nutrition supplements, nutrition consult. --Dysphagia; status post PEG; PEG feeds per protocol, PEG care --Acute kidney injury; vasomotor nephropathy/ATN Gentle hydration avoid nephrotoxins, monitor renal function --Acute CVA (cerebral vascular accident) Current Visit: Yes Status: Acute Patient is from hospice services ,patient son All [place] elects for comfort care measures and to refrain from aggressive work-up or therapy at this time. Discussed different options of therapy therapy. Mr. [place] request supportive care only at this time Patient is currently on hospice services with [facility] and is currently full code. Possible discharge back to hospice --Advance care planning Current Visit: Yes Status: Acute Disease education conducted, patient is full code at this time, and comfort care Case management discussing with the family about returning to hospice -- DVT prophylaxis Current Visit: No Status: Acute SCD to bilateral lower extremities while in bed, Monitor closely and adjust management as needed Plan of care reviewed with the patient's nurse DC planning per case management Disposition; closely monitor sodium levels, mental status Renal function, possible discharge in 1 to 2 days if stable History Interval history: Patient seen and examined at the bedside Patient's chart and medications reviewed Complaint of vague chest pain this morning EKG no acute ST-T changes First set of cardiac enzymes CK CK-MB and troponin I negative Symptoms resolved with Tylenol Patient is minimal communication Vital signs reviewed Hospitalist Physical - Constitutional Vitals: Temp Pulse Resp BP Pulse Ox 98.6 F 71 22 106/37 96 03/26/19 13:03 03/26/19 13:03 03/26/19 13:03 03/26/19 13:10 03/26/19 13:03 General appearance: Present: mild distress, well-nourished, obese - EENT Eyes: Present: PERRL, EOM intact - Neck Neck: Present: supple, normal ROM - Respiratory Respiratory effort: normal Respiratory: bilateral: diminished, rhonchi, negative: rales, wheezing - Cardiovascular Rhythm: regular Heart Sounds: Present: S1 & S2 - Extremities Extremities: no ischemia Extremity abnormal: edema - Abdominal General gastrointestinal: soft, non-tender, non-distended, other (PEG tube in place) - Integumentary Integumentary: Present: clear, warm - Psychiatric Psychiatric: other (Minimally communicative) - Neurologic Neurologic: other (Minimally communicative) Results - Labs CBC & Chem 7: 03/23/19 14:01 03/26/19 04:23 Labs: Laboratory Last Values WBC 8.7 K/mm3 (4.5-11.0) 03/23/19 14:01 RBC 4.60 M/mm3 (3.65-5.03) 03/23/19 14:01 Hgb 12.3 gm/dl (10.1-14.3) 03/23/19 14:01 Hct 39.2 % (30.3-42.9) 03/23/19 14:01 MCV 85 fl (79-97) 03/23/19 14:01 MCH 27 pg (28-32) L 03/23/19 14:01 MCHC 31 % (30-34) 03/23/19 14:01 RDW 15.3 % (13.2-15.2) H 03/23/19 14:01 Plt Count 262 K/mm3 (140-440) 03/23/19 14:01 Lymph % (Auto) 33.2 % (13.4-35.0) 03/23/19 14:01 [place] % (Auto) 7.3 % (0.0-7.3) 03/23/19 14:01 Eos % (Auto) 1.4 % (0.0-4.3) 03/23/19 14:01 Baso % (Auto) 1.2 % (0.0-1.8) 03/23/19 14:01 Lymph # 2.9 K/mm3 (1.2-5.4) 03/23/19 14:01 [place] # 0.6 K/mm3 (0.0-0.8) 03/23/19 14:01 Eos # 0.1 K/mm3 (0.0-0.4) 03/23/19 14:01 Baso # 0.1 K/mm3 (0.0-0.1) 03/23/19 14:01 Seg Neutrophils % 56.9 % (40.0-70.0) 03/23/19 14:01 Seg Neutrophils # 4.9 K/mm3 (1.8-7.7) 03/23/19 14:01 PT 15.3 Sec. (12.2-14.9) H 03/23/19 14:01 INR 1.19 (0.87-1.13) H 03/23/19 14:01 APTT 27.0 Sec. (24.2-36.6) 03/23/19 14:01 Thrombin Time 19.6 Sec. (15.1-19.6) 03/23/19 14:01 Sodium 155 mmol/L (137-145) H 03/26/19 04:23 Potassium 3.7 mmol/L (3.6-5.0) 03/26/19 04:23 Chloride 118.2 mmol/L (98-107) H 03/26/19 04:23 Carbon Dioxide 26 mmol/L (22-30) 03/26/19 04:23 Anion Gap 15 mmol/L 03/26/19 04:23 BUN 44 mg/dL (7-17) H 03/26/19 04:23 Creatinine 0.8 mg/dL (0.7-1.2) 03/26/19 04:23 Estimated GFR > 60 ml/min 03/26/19 04:23 BUN/Creatinine Ratio 55 % 03/26/19 04:23 Glucose 127 mg/dL (65-100) H 03/26/19 04:23 POC Glucose 121 (70-105) H 03/26/19 11:46 Calcium 9.7 mg/dL (8.4-10.2) 03/26/19 04:23 Phosphorus 3.10 mg/dL (2.5-4.5) 03/25/19 04:59 Magnesium 2.80 mg/dL (1.7-2.3) H 03/25/19 04:59 Total Bilirubin 0.30 mg/dL (0.1-1.2) 03/23/19 14:01 AST 29 units/L (5-40) 03/23/19 14:01 ALT 35 units/L (7-56) 03/23/19 14:01 Alkaline Phosphatase 129 units/L (35-129) 03/23/19 14:01 Total Creatine Kinase 44 units/L (30-135) 03/26/19 10:21 CK-MB (CK-2) 1.0 ng/mL (0.0-4.0) 03/26/19 10:21 CK-MB (CK-2) Rel Index 2.2 (0-4) 03/26/19 10:21 Troponin T 0.016 ng/mL (0.00-0.029) 03/26/19 10:21 Total Protein 7.3 g/dL (6.3-8.2) 03/23/19 14:01 Albumin 2.9 g/dL (3.9-5) L 03/23/19 14:01 Albumin/Globulin Ratio 0.7 % 03/23/19 14:01 TSH 0.552 mlU/mL (0.270-4.200) 03/23/19 14:01 Urine Color Yellow (Yellow) 03/23/19 13:41 Urine Turbidity Hazy (Clear) 03/23/19 13:41 Urine pH 5.0 (5.0-7.0) 03/23/19 13:41 Ur Specific [place] 1.021 (1.003-1.030) 03/23/19 13:41 Urine Protein 30 mg/dl mg/dL (Negative) 03/23/19 13:41 Urine Glucose (UA) Neg mg/dL (Negative) 03/23/19 13:41 Urine Ketones Neg mg/dL (Negative) 03/23/19 13:41 Urine Blood Neg (Negative) 03/23/19 13:41 Urine Nitrite Neg (Negative) 03/23/19 13:41 Urine Bilirubin Neg (Negative) 03/23/19 13:41 Urine Urobilinogen < 2.0 mg/dL (<2.0) 03/23/19 13:41 Ur Leukocyte Esterase Neg (Negative) 03/23/19 13:41 Urine WBC (Auto) 1.0 /HPF (0.0-6.0) 03/23/19 13:41 Urine RBC (Auto) 4.0 /HPF (0.0-6.0) 03/23/19 13:41 U Epithel Cells (Auto) 7.0 /HPF (0-13.0) 03/23/19 13:41 Hyaline Casts 3 /LPF 03/23/19 13:41 Urine Mucus Few /HPF 03/23/19 13:41 Urine Creatinine 118.4 mg/dL (0.1-20.0) H 03/23/19 17:54 Urine Sodium 19 mmol/L 03/23/19 17:54 Urine Opiates Screen Presumptive negative 03/23/19 13:41 Urine Methadone Screen Presumptive negative 03/23/19 13:41 Ur Barbiturates Screen Presumptive negative 03/23/19 13:41 Ur Phencyclidine Scrn Presumptive negative 03/23/19 13:41 Ur Amphetamines Screen Presumptive negative 03/23/19 13:41 U Benzodiazepines Scrn Presumptive negative 03/23/19 13:41 Urine Cocaine Screen Presumptive negative 03/23/19 13:41 U Marijuana (THC) Screen Presumptive negative 03/23/19 13:41 Drugs of Abuse Note Disclamer 03/23/19 13:41 Plasma/Serum Alcohol < 0.01 % (0-0.07) 03/23/19 14:01 Active Medications - Current Medications Current Medications: Generic Name Dose Route Start Last Admin Trade Name Freq PRN Reason Stop Dose Admin Acetaminophen 650 mg 03/23/19 17:44 03/26/19 11:00 Tylenol PO 650 mg Q4H PRN Administration Pain MILD(1-3)/Fever >100.5/LEWIS Lipase/Protease/Amylase 1 each 03/24/19 19:[address] 10,500 Unit FEEDTUBE PRN PRN For Clogged Feeding Tube Dextrose 1,000 mls @ 100 mls/hr 03/25/19 11:00 03/26/19 00:25 D5w IV 75 mls/hr DIRECT CAMILA Administration Ondansetron HCl 4 mg 03/23/19 17:44 Zofran IV Q8H PRN Nausea And Vomiting Simple Syrup 15 ml 03/24/19 19:17 Simple Syrup FEEDTUBE PRN PRN Hypoglycemia Simple Syrup 30 ml 03/24/19 19:17 Simple Syrup FEEDTUBE PRN PRN Hypoglycemia Sodium Bicarbonate 325 mg 02/14/20 19:17 Sodium Bicarbonate FEEDTUBE PRN PRN For Clogged Feeding Tube Sodium Chloride 10 ml 03/23/19 22:00 03/26/19 09:36 Sodium Chloride Flush Syringe 10 Ml IV 10 ml BID CAMILA Administration Sodium Chloride 10 ml 03/23/19 17:44 Sodium Chloride Flush Syringe 10 Ml IV PRN PRN LINE FLUSH Nutrition/Malnutrition Assess - Dietary Evaluation Nutrition/Malnutrition Findings: Nutrition Notes Start: 03/24/19 08:42 Freq: Status: Active Protocol: Document 03/25/19 09:09 CHI (Rec: 03/25/19 09:13 [id number]) Nutrition Notes Need for Assessment generated from: MD Order Initial or Follow up Brief Note Current Diagnosis Hypertension,Stroke Other Pertinent Diagnosis PEG, wounds Current Diet NPO Labs/Tests Na: 161 BUN: 49 Pertinent Medications 1/2 NS at 100 ml/hr [place] Body Weight (kg) 0 Subjective/Other Information MD consult for write/manage TF GI Symptoms None Difficulty In Chewing Food Allergy No Current % PO Negligible Minimum of two criteria No Muscle Mass Mild Depletion (non-severe) #2 Nutrition Diagnosis Increased nutrient needs ( specify in comment below) Diagnosis Progress(for reassessment Continues documentation) #1 Nutrition Diagnosis Inadequate oral intake Diagnosis Progress(for reassessment Continues documentation) Is patient on ventilator? No Is Patient Ambulatory and/or Out of Bed No REE-([facility]-confined to bed) 0 Kcal/Kg value to use for calculation 15 Calculation Used for Recommendations Kcal/kg Additional Notes Protein: 111-133g/day (1.25-1. 5g/kg AdBW 89.1kg) Fluid: 1ml/kcal Nutrition Intervention Change Diet Order: TF Nutrition Support: Promote at 65ml/hr Flush at 150ml/hr q4hr for hypernatremia, once resolved flush at 50ml/hr q4hr Kcal 1,560 Protein (gm) 97 Fluid (mL) 1,308 Goal #1 TF initiation/tolerance Anticipated Discharge Needs: TF Follow-Up By: 03/27/19 Additional Comments F/u for TF initiation/ tolerance
[2019-03-27 05:05] LABS: BUN/Creatinine Ratio 51; Blood Urea Nitrogen 41 mg/dL (7-17); Calcium 9.2 mg/dL (8.4-10.2); Hemolysis Index 13
--- NOTE | 2019-03-27 07:57 | Discharge Summary ---
Providers - Providers Date of Admission: 03/23/19 17:44 Date of discharge: 03/27/19 Attending physician: NAILA WAGGONER 03/23/19 13:42 Speech Therapy Evaluation and Treat [CONS] Stat Reason For Exam: alt mental status 03/23/19 17:44 Consult to Physician [CONS] Routine Comment: Consulting Provider: ALEX RICO Physician Instructions: Reason For Exam: hypernatremia 03/24/19 16:03 Consult to Dietitian/Nutrition [CONS] Routine Physician Instructions: Reason For Exam: Reason for Consult: Write/Manage Tube Feeding 03/24/19 19:21 Consult to Dietitian/Nutrition [CONS] Routine Physician Instructions: Assess nutrtn needs, initiate, modify, manage TF Reason For Exam: Reason for Consult: Write/Manage Tube Feeding Reason for Consult: Write/Manage Tube Feeding 03/24/19 19:36 Consult to Wound/ET Nurse [CONS] Routine Reason For Exam: wound eval Primary care physician: RECREATIONAL PROGRAMS DIRECTOR Hospitalization Condition: Serious Pertinent studies: CT head without contrast large right MCA infarct involving the right frontoparietal region some mass-effect superiorly more chronic appearing infarct involving posterior left cerebrum no intracranial hemorrhage Hospital course: 83 YO Female with HTN, HLD, SDH who is currently on home hospice care with [facility] presents to ED for evalulation. Pt is confused and unable to provide history. Patient history taken from patient's son who is at bedside during exam and interview. As per the patient's son the patient has experienced confusion with concomitant nonsensical speech over the past 1 day with persistent symptoms over the same timeframe. Family refused any aggressive work-up for neuro symptoms or management, opted comfort care and hospice Patient CT scan of the head findings consistent with acute CVA, however family service assistant the son did not want any aggressive Work-up or management, wanted comfort care Patient had severe hyponatremia, evaluated by sludge filtration attendant, received D5W and free water flushes Sodium level significantly improved near to normal today Today patient is comfortable no new complaints vital signs stable Patient is stable for discharge home with hospice -- Metabolic encephalopathy Current Visit: Yes Status: Acute Multifactorial , secondary to severe hypernatremia , advanced age History of old stroke , dementia IV fluid , neurochecks. treat the underlying cause -- Acute hypernatremia Current Visit: Yes Status: Acute Secondary to IV fluid resuscitation therapy, urine electrolytes, nephrology consulted, closely monitor electrolytes. --Severe protein calorie malnutrition; hypoalbuminemia nutrition supplements, nutrition consult. --Dysphagia; status post PEG; PEG feeds per protocol, PEG care --Acute kidney injury; vasomotor nephropathy/ATN Gentle hydration avoid nephrotoxins, monitor renal function --Acute CVA (cerebral vascular accident) Current Visit: Yes Status: Acute Patient is from hospice services ,patient son [place] elects for comfort care Did not want aggressive work-up or management Family requested supportive care only at this time Patient is currently on hospice services with [facility] and is currently full code. DC to hospice today Disposition: DC-50 TO HOSPICE (HOME) Time spent for discharge: 32 min Core Measure Documentation - Palliative Care Palliative Care/ Comfort Measures: Hospice Care - Core Measures Any of the following diagnoses?: none Exam - Constitutional Vitals: Temp Pulse Resp BP Pulse Ox 97.6 F 81 22 150/70 94 03/27/19 02:44 03/27/19 02:45 03/27/19 02:44 03/27/19 02:44 03/27/19 02:45 General appearance: Present: no acute distress, well-nourished - EENT Eyes: Present: PERRL, EOM intact - Neck Neck: Present: supple, normal ROM - Respiratory Respiratory effort: normal Respiratory: bilateral: diminished, negative: rales, rhonchi, wheezing - Cardiovascular Rhythm: regular Heart Sounds: Present: S1 & S2 - Extremities Extremities: no ischemia Extremity abnormal: edema - Abdominal General gastrointestinal: Present: soft, non-tender, non-distended, normal bowel sounds - Integumentary Integumentary: Present: clear, warm - Musculoskeletal Musculoskeletal: generalized weakness - Psychiatric Psychiatric: other (Confused minimal communication) - Neurologic Neurologic: other (Residual weakness) Plan Activity: advance as tolerated, fall precautions Diet: other (Tube feeding per protocol) Additional Instructions: Tube feeding per protocol. Fall precautions. Free water to 300 ML every 6 hours hours. Follow up with: LAY FIGUEREDO MD [Primary Care Provider] - 3-5 Days ALEX RICO MD [Staff Physician] - 7 Days
--- NOTE | 2019-03-27 14:34 | Progress Note ---
Assessment and Plan 1. Hypernatremia: Likely secondary to dehydration. Serum sodium improving 146 from 152. Continue IV fluids. Monitor lytes. 2. Metabolic encephalopathy: H/o stroke and dementia. 3. Acute cerebral vascular accident: Son refraining from aggressive treatment or work-up at this time. Per case management, son agrees for patient to return home with [facility] hospice 03/27. 4. Hypertension: Monitor BP. 5. Poor PO intake: Tolerating tube feeds well through PEG tube. Subjective Date of service: 03/27/19 Interval history: Patient was seen and examined at the bedside. No family present in room. Patient is expected to discharge home today with home hospice through [facility]. Objective - Exam Narrative Exam: General appearance: well-developed, well-nourished, appears stated age, obese EENT: ATNC, PERRL, mucous membranes dry Neck: Present: neck supple, trachea midline Respiratory: Decreased Breath Sounds (bilateral bases) Heart: regular, normal heart rate, S1S2, no murmurs Gastrointestinal: Present: normal, normoactive bowel sounds, other (PEG tube) Integumentary: no rash, warm and dry, other (sacral ulcer/abrasion to left buttock) Neurologic: confused, other (right sided gaze) Musculoskeletal: Present: other (generalized weakness, left side deficit) Psychiatric: cooperative, other (confused), responds to name with eye contact and some incoherent speech - Vital Signs Vital signs: Vital Signs - 12hr 03/27/19 03/27/19 03/27/19 02:44 02:45 07:53 Temperature 97.6 F 98.8 F Pulse Rate 81 66 Respiratory 22 20 Rate Blood Pressure 150/70 132/44 O2 Sat by Pulse 94 94 Oximetry - Lab 03/23/19 14:01 03/27/19 03:26 Most recent lab results Calcium 9.2 mg/dL (8.4-10.2) 03/27/19 03:26 Phosphorus 3.10 mg/dL (2.5-4.5) 03/25/19 04:59 Magnesium 2.80 mg/dL (1.7-2.3) H 03/25/19 04:59 Urine Creatinine 118.4 mg/dL (0.1-20.0) H 03/23/19 17:54 Urine Sodium 19 mmol/L 03/23/19 17:54 Medications & Allergies - Medications Allergies/Adverse Reactions: Allergies No Known Allergies Allergy (Verified 10/01/17 07:10) Home Medications: Home Medications Medication Instructions Recorded Confirmed Last Taken Type Acetaminophen [Acetaminophen TAB] 650 mg PO Q4H PRN #10 tablet 09/21/17 03/23/19 Unknown Rx Amlodipine Besylate [Norvasc] 5 mg PO DAILY #30 tablet 09/21/17 03/23/19 Unknown Rx Aspirin [Aspirin BABY CHEW TAB] 81 mg PO QDAY #30 tab.chew 09/21/17 03/23/19 Unknown Rx AtorvaSTATin [Lipitor] 40 mg PO QHS #30 tablet 09/21/17 03/23/19 Unknown Rx Lasix TAB 40 mg PO DAILY 03/23/19 03/23/19 Unknown History Potassium Chloride 15 mg PO DAILY 03/23/19 03/23/19 Unknown History Acetaminophen [Acetaminophen TAB] 650 mg PO Q4H PRN tablet 03/27/19 Unknown Rx Lipase/Protease/Amylase [Pancreaze 1 each FEEDTUBE PRN PRN capsule 03/27/19 Unknown Rx 10,500 Unit] Simple Syrup 15 ml FEEDTUBE PRN PRN oral.liqd 03/27/19 Unknown Rx Simple Syrup 30 ml FEEDTUBE PRN PRN oral.liqd 03/27/19 Unknown Rx Sodium Bicarbonate 325 mg FEEDTUBE PRN PRN tablet 03/27/19 Unknown Rx Active Medications: Generic Name Dose Route Start Last Admin Trade Name Freq PRN Reason Stop Dose Admin Acetaminophen 650 mg 03/23/19 17:44 03/26/19 11:00 Tylenol PO 650 mg Q4H PRN Administration Pain MILD(1-3)/Fever >100.5/LEWIS Lipase/Protease/Amylase 1 each 03/24/19 19:17 Shiv Huggins 10,500 Unit FEEDTUBE PRN PRN For Clogged Feeding Tube Dextrose 1,000 mls @ 100 mls/hr 03/25/19 11:00 03/26/19 20:20 D5w IV 75 mls/hr DIRECT CAMILA Administration Ondansetron HCl 4 mg 03/23/19 17:44 Zofran IV Q8H PRN Nausea And Vomiting Simple Syrup 15 ml 03/24/19 19:17 Simple Syrup FEEDTUBE PRN PRN Hypoglycemia Simple Syrup 30 ml 03/24/19 19:17 Simple Syrup FEEDTUBE PRN PRN Hypoglycemia Sodium Bicarbonate 325 mg 03/24/19 19:17 Sodium Bicarbonate FEEDTUBE PRN PRN For Clogged Feeding Tube Sodium Chloride 10 ml 03/23/19 22:00 03/27/19 09:50 Sodium Chloride Flush Syringe 10 Ml IV 10 ml BID CAMILA Administration Sodium Chloride 10 ml 03/23/19 17:44 Sodium Chloride Flush Syringe 10 Ml IV PRN PRN LINE FLUSH
[2019-03-27 18:03] VITALS: BP 125/43
== END 2019-03-27 18:52 | disposition hospice, home (50) | DRG 64 ==
LOC: ED 12:31 → 2B-ACE 17:44
PROVIDERS: ADMIT Internal Medicine; ATTEND Internal Medicine
DX: I63.9 Cerebral infarction, unspecified (principal); G93.41 Metabolic encephalopathy; N17.0 Acute kidney failure with tubular necrosis; E43 Unspecified severe protein-calorie malnutrition; E87.0 Hyperosmolality and hypernatremia; I10 Essential (primary) hypertension; R13.10 Dysphagia, unspecified; F03.90 Unspecified dementia, unspecified severity, without behavioral disturbance, psychotic disturbance, mood disturbance, and anxiety; Z96.653 Presence of artificial knee joint, bilateral; R29.719 NIHSS score 19; Z68.34 Body mass index [BMI] 34.0-34.9, adult; Z93.1 Gastrostomy status; Z90.710 Acquired absence of both cervix and uterus; Z82.49 Family history of ischemic heart disease and other diseases of the circulatory system; Z79.899 Other long term (current) drug therapy; Z79.82 Long term (current) use of aspirin
CPT/HCPCS: 36415; 70450; 80048; 80053; 80307; 80320; 81001; 82550; 82553; 82570; 82962; 83735; 84100; 84295; 84300; 84443; 84484; 85025; 85610; 85670; 85730; 87116; 93005; 93010; G0378; G0480; J7030; J7070